=== PATIENT | male | born 1955 | race Caucasian/White ===

== ENCOUNTER → 2017-01-14 | Outpatient (CLI) | payer OTHER, BC ==
[~2017-01-14] MED LIST: ABL/5 PO; ASPI81TA28 PO; ATOR-26 PO; CARI350T28 PO; CHOL200010 PO; CLIN150C PO; CLON1TAB3 PO; CYAN500T PO; EFFSR150 PO; ESZO1TAB16 PO; FENT50DI19 TD; FLUO0.0543; FNTTP50 TD; GABA-113 PO; GLC/500 PO; ISOS60TA25 PO; MELO15TA10 PO; MELO15TA3 PO; METO25TA56 PO; METO50TA16 PO; NITR0.4S UT; PROM25TA PO; PROM25TA9 PO; RANI300T2 PO; TOPI100T20 PO; TOPI50TA24 PO; TRAZ100T29 PO; TRAZ50TA35 PO; VAREPAK PO; VENL1CAP92 PO
[2017-01-14 13:30] LABS: CALCIUM 9.5 mg/dl (8.5-10.1)
[2017-01-14 13:31] LABS: BLOOD UREA NITROGEN 16 mg/dl (7-18); BUN/CREATININE RATIO 11.7 (10-20); CARBON DIOXIDE 22 mmol/L (21-32); CHLORIDE 109 mmol/L (98-107); GLUCOSE 106 mg/dl (70-99); MAGNESIUM 2.2 mg/dl (1.8-2.4); POTASSIUM 3.8 mmol/L (3.5-5.1); SODIUM 140 mmol/L (136-145)
== END | disposition home or self-care (01) ==
LOC: C.LAB1850 11:58
PROVIDERS: ATTEND Physician Assistant Medical
DX: R00.2 Palpitations (principal)

== ENCOUNTER 2017-03-06 10:44 | Emergency (ER) | payer OTHER, BC ==
[~2017-03-06] VITALS: Ht 180.3 cm; Wt 121.0 kg
[~2017-03-06 10:44] MED LIST changes: -EFFSR150 PO; -FNTTP50 TD; -ISOS60TA25 PO; -MELO15TA10 PO; -METO50TA16 PO; -PROM25TA9 PO; -TRAZ100T29 PO
[2017-03-06 10:45] VITALS: TEMP 37; Ht 180.3 cm; Wt 121.0 kg
[2017-03-06] MEDS ORDERED: FNTTP50 TD (11:07)
[2017-03-06] MEDS ORDERED: TRAZ100T29 PO (11:07)
[2017-03-06] MEDS ORDERED: MELO15TA10 PO (11:07)
[2017-03-06] MEDS ORDERED: EFFSR150 PO (11:07)
[2017-03-06] MEDS ORDERED: METO50TA16 PO (11:07)
[2017-03-06] MEDS ORDERED: ISOS60TA25 PO (11:07)
[2017-03-06] MEDS ORDERED: PROM25TA9 PO (11:08)
[2017-03-06 11:36] LABS: HEMATOCRIT 45.3 % (42-52); MEAN CELL VOLUME 90.6 fL (80-100); MEAN CORPUSCULAR HEMOGLOBIN 31.8 pg (25-34); MEAN CORPUSCULAR HGB CONC 35.1 g/dl (32-36); MEAN PLATELET VOLUME 11.2 fL (7.4-10.4); PLATELET COUNT 153 K/uL (130-400); WHITE BLOOD COUNT 9.22 K/uL (4.8-10.8)
[2017-03-06 11:44] LABS: BUN/CREATININE RATIO 12.2 (10-20); CALCIUM 9.1 mg/dl (8.5-10.1); CREATININE 1.5 mg/dl (0.60-1.40); PARTIAL THROMBOPLASTIN RATIO 1.1; POTASSIUM 4.4 mmol/L (3.5-5.1); PROTHROMBIN TIME (PATIENT) 10.4 SECONDS (9.0-12.0)
[2017-03-06 11:45] VITALS: O2SAT 97
[2017-03-06] MEDS ORDERED: HYDROmorphone INJ 0.5 MG/0.5 ML SYR IV STA (11:48)
[2017-03-06] MEDS ORDERED: ONDANSETRON INJ 2 MG/ML 2 ML VIAL IV STA (11:48)
[2017-03-06 11:49] LABS: ALB/GLOB RATIO 1.2 (0.9-2); CKMB/CK RATIO 8.6 (0-3.0)
--- NOTE | 2017-03-06 11:52 | DIAGNOSTIC IMAGING REPORT ---
CHEST ONE VIEW PORTABLE CLINICAL HISTORY: chest pain, sob dyspnea COMPARISON STUDY: 08/07/2015 FINDINGS: The bones soft tissues and hemidiaphragms are normal. The cardiomediastinal silhouette is normal. The lungs are clear. The pulmonary vasculature is normal. IMPRESSION: Negative chest. The above report was generated using voice recognition software. It may contain grammatical, syntax or spelling errors. Electronically signed by: Syed Krueger M.D. 03/06/2017 11:51 AM Dictated Date/Time: 03/06/2017 11:51 AM
--- NOTE | 2017-03-06 14:14 | Medical Consult ---
Consultation Date of Consultation: Mar 06, 2017. Attending Physician: Reason for Consultation: Chest pain History of Present Illness 61 y/o M Hx CAD, HTN, HPL, morbid obesity, tobacco abuse, chronic CP. Pt is undergoing evaluation for reported palpitations which are associated with chest tightness and SOB. He had an MCOT 02/06 which did not show any significant arrhythmias associated with reported symptoms. He then had a 2 week event monitor which he states he was told was abnormal. This AM, the pt developed central upper CP which persisted for 2 hours and did not respond to NTG. He denied SOB, N/V or diaphoresis. The pain responded to narcotics provided in the ER. Initial trop is negative and was obtained approximately 2 hours after the onset of the pain. EKG shows a NSR. He has not had recurrence while in the ER and his pain is somewhat reproducible. Past Medical/Surgical History 1) CAD - cath 2012 - stens to LAD and L circ 2) HTN 3) HPL 4) Morbid obesity 5) Chronic lower back pain 6) Diastolic dysfunction 7) Depression Family History Patient reports no known family medical history. No history of premature CAD - History of CA - unspecified Social History Smokes 1 pack QD - denies excessive alcohol intake Smoking Status: Current Every Day Smoker Drug Use: none Marital Status: Housing Status: lives with family Occupation Status: retired Allergies Coded Allergies: Penicillins (Verified Allergy, Unknown, RASH/HIVES PER H&P OF DR GUNDERSON, 08/07/15) PER MD ON ORDER SHEET, REACTION UNKNOWN Review of Systems Constitutional: No fever, No chills, No sweats Eyes: No worsening of vision ENT: No hearing loss, No unusual epistaxis, No nasal symptoms Respiratory: No cough, No sputum, No wheezing Cardiovascular: + chest pain, No orthopnea, No PND Abdomen: No pain, No nausea, No vomiting Musculoskeletal: No joint pain Genitourinary - Male: No hematuria, No dysuria, No urinary frequency Neurologic: No memory loss, No paralysis, No weakness Psychiatric: No depression symptoms Endocrine: No fatigue Hematologic / Lymphatic: No abnormal bleeding/bruising Integumentary: No rash Allergic / Immunologic: No environmental allergies Physical Exam Date Time Temp Pulse Resp B/P (MAP) Pulse Ox O2 Delivery O2 Flow Rate FiO2 03/06/17 13:00 58 14 124/70 94 03/06/17 12:30 56 13 125/69 95 03/06/17 12:21 57 03/06/17 12:00 57 12 141/77 96 03/06/17 11:45 97 Nasal Cannula 1.0 03/06/17 11:45 97 Room Air 03/06/17 11:44 53 14 128/73 97 Room Air 03/06/17 10:45 37.0 62 18 157/81 96 Room Air Pleasant, overweight, middle-aged male - no distress General Appearance: WD/WN, no apparent distress Head: normocephalic Eyes: normal inspection, PERRL, EOMI ENT: normal ENT inspection Neck: supple, no adenopathy, thyroid normal, no JVD Respiratory/Chest: chest non-tender, lungs clear, normal breath sounds Cardiovascular: regular rate, rhythm, no edema, no gallop, no JVD, no murmur, normal peripheral pulses Abdomen/GI: normal bowel sounds, non tender Back: normal inspection, no CVA tenderness, no muscle spasm Extremities/Musculoskelatal: normal inspection, no calf tenderness, normal capillary refill 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, no motor/sensory deficits, alert, normal mood/affect, normal reflexes, oriented x 3 Skin: normal color, warm/dry, no rash Laboratory Results Last 24 Hours Test 03/06/17 10:53 White Blood Count 9.22 K/uL Red Blood Count 5.00 M/uL Hemoglobin 15.9 g/dL Hematocrit 45.3 % Mean Corpuscular Volume 90.6 fL Mean Corpuscular Hemoglobin 31.8 pg Mean Corpuscular Hemoglobin Concent 35.1 g/dl RDW Standard Deviation 43.6 fL RDW Coefficient of Variation 13.1 % Platelet Count 153 K/uL Mean Platelet Volume 11.2 fL Prothrombin Time 10.4 SECONDS Prothromb Time International Ratio 1.0 Activated Partial Thromboplast Time 29.0 SECONDS Partial Thromboplastin Ratio 1.1 D-Dimer 260 ug/L FEU Sodium Level 141 mmol/L Potassium Level 4.4 mmol/L Chloride Level 107 mmol/L Carbon Dioxide Level 28 mmol/L Anion Gap 6.0 mmol/L Blood Urea Nitrogen 18 mg/dl Creatinine 1.50 mg/dl Est Creatinine Clear Calc Drug Dose 68.4 ml/min Estimated GFR () 57.4 Estimated GFR (Non- 49.5 BUN/Creatinine Ratio 12.2 Random Glucose 105 mg/dl Calcium Level 9.1 mg/dl Total Bilirubin 0.4 mg/dl Aspartate Amino Transf (AST/SGOT) 21 U/L Alanine Aminotransferase (ALT/SGPT) 48 U/L Alkaline Phosphatase 89 U/L Total Creatine Kinase 22 U/L Creatine Kinase MB 1.9 ng/ml Creatine Kinase MB Ratio 8.6 Troponin I < 0.015 ng/ml Total Protein 7.1 gm/dl Albumin 3.8 gm/dl Globulin 3.3 gm/dl Albumin/Globulin Ratio 1.2 Assessment & Plan 61 y/o M Hx CAD, HTN, HPL, morbid obesity, tobacco abuse, chronic CP. Pt is undergoing evaluation for reported palpitations which are associated with chest tightness and SOB. He had an MCOT 02/06 which did not show any significant arrhythmias associated with reported symptoms. He then had a 2 week event monitor which he states he was told was abnormal. This AM, the pt developed central upper CP which persisted for 2 hours and did not respond to NTG. He denied SOB, N/V or diaphoresis. The pain responded to narcotics provided in the ER. Initial trop is negative and was obtained approximately 2 hours after the onset of the pain. EKG shows a NSR. He has not had recurrence while in the ER and his pain is somewhat reproducible. 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 We will monitor for a few more hours and obtain an additional set of troponins. If there is no change in his trop or EKG and CP does not recur, we will discharge home. Cont ASA, Statin, Bblocker 2) HTN - cont 3) HPL 4) Continued tobacco use - pt is aware of associated hazards of continued smoking 5) Obese - advised on weight loss/exercise following completion of cardio w/u No changes made to outpt meds Total time for this consult including review of outpatient records, labs, meds - discussion with pt and ER attending - 37 min
--- NOTE | 2017-03-06 14:54 | EMERGENCY ROOM VISIT NOTE ---
History Report prepared by Eusebio: Lynda Shannon Under the Supervision of: Dr. Abhilash Liriano M.D. First contact with patient: 11:38 Chief Complaint: CHEST PAIN Stated Complaint: CHEST PAIN,NAUSEA Nursing Triage Summary: triage note: Pt reports chest pain started at approx 1015 today. pt reports shortness of breath. pt reports hx of two stents. 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 The patient took 2 nitroglycerin and 2 baby aspirin. He states that neither seemed to relieve his pain. The patient states that his pain just started improving and seemed to be unrelated to the aspirin or nitroglycerin. The patient experiences pain with deep breathing. The patient's symptoms are unchanged when he goes from lying flat to sitting upright but his adds that he was experiencing difficulty breathing when he was sitting upright before. He is also experiencing nausea and some diarrhea. Pt denies LOC, headache, fevers, chills, diaphoresis, visual changes, neck pain, personal history or family history of aneurysm or pulmonary embolism, uncontrolled hypertension, leg swelling, coagulation abnormalities, abdominal pain, melena, hematochezia, urinary symptoms, numbness, weakness, lymphadenopathy, rash, or other complaints. The patient states that he has been experiencing an intermittent "uncomfortable" feeling in his chest over the past couple of weeks but he would not qualify it as pain. The patient is also experiencing a cough, but states that he is a smoker. The patient had cardiac 2 stents placed in 2012. The patient has a fentanyl patch in place for migraines which he states he has had for years. 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 A total of ten systems were reviewed and were otherwise negative. Past Medical & Surgical Medical Problems: (1) Anxiety (2) Benign hypertension (3) Depression (4) Diabetes (5) Migraine Surgical Problems: (1) H/O heart artery stent (2) Stented coronary artery Family History Patient reports no known family medical history. Social History Smoking Status: Current Every Day Smoker Alcohol Use: none Drug Use: none Marital Status: Housing Status: lives with family Occupation Status: retired Current/Historical Medications Scheduled Aripiprazole (Abilify), 5 MG PO DAILY Aspirin (Aspirin Ec), 81 MG PO DAILY Atorvastatin (Lipitor), 80 MG PO DAILY Cholecalciferol (Vitamin D), 4,000 UNITS PO DAILY Clindamycin Hcl (Cleocin), 300 MG PO DIRECTED Cyanocobalamin (Vitamin B-12), 500 MCG PO DAILY Fentanyl (Duragesic), 50 MCG TD [id number] Isosorbide Mononitrate Ext Rel (Imdur Ext Rel), 90 MG PO QAM Meloxicam (Mobic), 15 MG PO DAILY Metformin Hcl (Glucophage), 1,000 MG PO BID Metoprolol Tartrate (Lopressor) (Lopressor), 50 MG PO BID Nitroglycerin (Nitrostat), 0.4 MG UT PRN Ranitidine Hcl (Zantac), 300 MG PO BID Topiramate (Topamax), 150 MG PO BID Topiramate (Topamax), 50 MG PO BID Venlafaxine Hcl (Effexor Extended Rel), 150 MG PO DAILY Scheduled PRN Carisoprodol (Soma), 350 MG PO TID PRN for MUSCLE SPASM Promethazine Hcl (Phenergan), 25 MG PO BID PRN for Nausea Trazodone Hcl (Trazodone), 200 MG PO HS PRN for Sleep Allergies Coded Allergies: Penicillins (Verified Allergy, Unknown, RASH/HIVES PER H&P OF DR ARRIETA, 08/07/15) PER MD ON ORDER SHEET, REACTION UNKNOWN Physical Exam Vital Signs Date Time Temp Pulse Resp B/P (MAP) Pulse Ox O2 Delivery O2 Flow Rate FiO2 03/06/17 14:00 55 14 118/78 100 03/06/17 13:30 57 19 139/83 97 03/06/17 13:00 58 14 124/70 94 03/06/17 12:30 56 13 125/69 95 03/06/17 12:21 57 03/06/17 12:00 57 12 141/77 96 03/06/17 11:45 97 Nasal Cannula 1.0 03/06/17 11:45 97 Room Air 03/06/17 11:44 53 14 128/73 97 Room Air 03/06/17 10:45 37.0 62 18 157/81 96 Room Air Physical Exam GENERAL: Awake, alert, well-appearing, in no distress HENT: Normocephalic, atraumatic. Oropharynx unremarkable. EYES: Normal conjunctiva. Sclera non-icteric. NECK: Supple. No nuchal rigidity. FROM. No JVD. RESPIRATORY: Clear to auscultation. CARDIAC: Regular rate, normal rhythm. Extremities warm and well perfused. Pulses equal. ABDOMEN: Soft, non-distended. No tenderness to palpation. No rebound or guarding. No masses. RECTAL: Deferred. MUSCULOSKELETAL: Chest examination reveals no tenderness. The back is symmetrical on inspection without obvious abnormality. There is no CVA tenderness to palpation. No joint edema. LOWER EXTREMITIES: Calves are equal size bilaterally and non-tender. No edema. No discoloration. NEURO: Normal sensorium. No sensory or motor deficits noted. SKIN: No rash or jaundice noted. Medical Decision & Procedures ER Provider Diagnostic Interpretation: Radiology results as stated below per my review and radiologist interpretation: CHEST ONE VIEW PORTABLE FINDINGS: The bones soft tissues and hemidiaphragms are normal. The cardiomediastinal silhouette is normal. The lungs are clear. The pulmonary vasculature is normal. IMPRESSION: Negative chest. The above report was generated using voice recognition software. It may contain grammatical, syntax or spelling errors. Electronically signed by: Syed Krueger M.D. 03/06/2017 11:51 AM Dictated Date/Time: 03/06/2017 11:51 AM Laboratory Results 03/06/17 10:53 03/06/17 10:53 Test 03/06/17 10:53 Red Blood Count 5.00 M/uL (4.7-6.1) Mean Corpuscular Volume 90.6 fL (80-100) Mean Corpuscular Hemoglobin 31.8 pg (25-34) Mean Corpuscular Hemoglobin Concent 35.1 g/dl (32-36) RDW Standard Deviation 43.6 fL (36.4-46.3) RDW Coefficient of Variation 13.1 % (11.5-14.5) Mean Platelet Volume 11.2 fL (7.4-10.4) Prothrombin Time 10.4 SECONDS (9.0-12.0) Prothromb Time International Ratio 1.0 (0.9-1.1) Activated Partial Thromboplast Time 29.0 SECONDS (21.0-31.0) Partial Thromboplastin Ratio 1.1 D-Dimer 260 ug/L FEU (0-500) Anion Gap 6.0 mmol/L (3-11) Est Creatinine Clear Calc Drug Dose 68.4 ml/min Estimated GFR () 57.4 Estimated GFR (Non- 49.5 BUN/Creatinine Ratio 12.2 (10-20) Calcium Level 9.1 mg/dl (8.5-10.1) Total Bilirubin 0.4 mg/dl (0.2-1) Aspartate Amino Transf (AST/SGOT) 21 U/L (15-37) Alanine Aminotransferase (ALT/SGPT) 48 U/L (12-78) Alkaline Phosphatase 89 U/L (45-117) Total Creatine Kinase 22 U/L (39-308) Creatine Kinase MB 1.9 ng/ml (0.5-3.6) Creatine Kinase MB Ratio 8.6 (0-3.0) Troponin I < 0.015 ng/ml (0-0.045) Total Protein 7.1 gm/dl (6.4-8.2) Albumin 3.8 gm/dl (3.4-5.0) Globulin 3.3 gm/dl (2.5-4.0) Albumin/Globulin Ratio 1.2 (0.9-2) Laboratory results reviewed by me Medications Administered Medications (Trade) Dose Ordered Sig/Valentina Route Start Time Stop Time Status Last Admin Dose Admin Hydromorphone HCl (Dilaudid Inj) 0.5 mg NOW STAT IV 03/06/17 11:48 03/06/17 11:49 DC 03/06/17 11:57 0.5 MG Ondansetron HCl (Zofran Inj) 4 mg NOW STAT IV 03/06/17 11:48 03/06/17 11:49 DC 03/06/17 11:57 4 MG ECG Indication: chest pain Rate (beats per minute): 63 Rhythm: normal sinus Findings: no acute ischemic change, no ectopy ED Course 1145: The patient was evaluated in room B3. A complete history and physical exam was performed. 1148: Ordered Zofran Inj 4 mg IV, Dilaudid Inj 0.5 mg IV 1248: Upon reexamination, the patient was resting comfortably. I discussed the test results and treatment plan with him. The patient will be evaluated for further management. 1253: Discussed the patient's case with Dr. Herman of the [facility]. The patient will be evaluated for further treatment and disposition. Medical Decision Medication Reconciliation: I attest that I have personally reviewed the patient' s current medication list Patient was found to have a slightly elevated blood pressure due to circumstances. I do not believe that the patient requires hypertension monitoring. Triage Nursing notes reviewed. The patient's presentation and history were concerning for chest pain. Etiologies such as cardiac ischemia, aortic dissection, pulmonary embolism, pneumonia, pneumothorax, musculoskeletal, infections, gastrointestinal, as well as others were entertained. The patient was evaluated. Clinically he was feeling better but still had pain. He noted nitroglycerin did not relieve his pain. ECG was nonischemic. His CBC, chemistry panel, troponin, LFTs, and d-dimer were negative. The patient was given a dose of Dilaudid and Zofran and felt much better. He had a pleuritic component to it. Chest x-ray was performed and revealed no acute findings. The patient was not hypoxic. Given his cardiac history comes patient was made with internal medicine. The patient was evaluated in the Emergency Room by Dr. Herman for further management. Consults Time Called: 1251 Consulting Physician: Dr. Herman - [facility] [place] Returned Call: [phone] Discussed the patient's case with Dr. Herman of the [facility]. The patient will be evaluated for further treatment and disposition. Impression Primary Impression: Substernal chest pain Scribe Attestation The scribe's documentation has been prepared under my direction and personally reviewed by me in its entirety. I confirm that the note above accurately reflects all work, treatment, procedures, and medical decision making performed by me. Departure Information Dispostion Being Evaluated By Hospitalist Referrals Alexander Arrieta M.D. (PCP) Patient Instructions My [facility]
--- NOTE | 2017-03-06 17:19 | EMERGENCY ROOM VISIT NOTE ---
ED Visit Note This patient was seen by Dr. Liriano as well as Dr. Verduzco in consultation. The game plan was to discharge the patient the second troponin was normal with close follow-up with cardiology. The second troponin was also negative. The patient is asymptomatic at present and wants to go home. Our case management team is going to make an appointment and will call the machine ii cutter's office on Wednesday when they open. The patient was encouraged to return over the weekend if he has any further pain, worsening of symptoms, any new problems or concerns
[2017-03-06 17:31] VITALS: BP 136/76; PULSE 68; O2SAT 98
== END 2017-03-06 17:32 | disposition home or self-care (01) ==
LOC: C.EDB 10:45
DX: R07.2 Precordial pain (principal); R07.89 Other chest pain; R19.7 Diarrhea, unspecified; R11.0 Nausea; I10 Essential (primary) hypertension; F32.9 Major depressive disorder, single episode, unspecified; E11.9 Type 2 diabetes mellitus without complications; E78.5 Hyperlipidemia, unspecified; R06.02 Shortness of breath; E66.01 Morbid (severe) obesity due to excess calories; I25.10 Atherosclerotic heart disease of native coronary artery without angina pectoris; F17.200 Nicotine dependence, unspecified, uncomplicated; Z98.61 Coronary angioplasty status; Z79.82 Long term (current) use of aspirin; Z79.84 Long term (current) use of oral hypoglycemic drugs; Z79.899 Other long term (current) drug therapy

== ENCOUNTER 2018-01-06 12:45 | Observation (INO) | payer OTHER ==
[~2018-01-06] VITALS: Ht 180.3 cm; Wt 120.4 kg
[~2018-01-06 12:45] MED LIST changes: -CLON1TAB3 PO; +EFFSR150 PO; -ESZO1TAB16 PO; -FENT50DI19 TD; -FLUO0.0543; +FNTTP50 TD; -GABA-113 PO; +ISOS60TA25 PO; +MELO15TA10 PO; -MELO15TA3 PO; -METO25TA56 PO; +METO50TA16 PO; -PROM25TA PO; +PROM25TA9 PO; +TRAZ100T29 PO; -TRAZ50TA35 PO; -VAREPAK PO; -VENL1CAP92 PO
[2018-01-06 13:15] LABS: BASO ABS # 0.08 K/uL (0-0.2); EOS % 3.4 %; EOS ABS # 0.26 K/uL (0-0.5); HEMATOCRIT 44.1 % (42-52); HEMOGLOBIN 15.9 g/dL (14.0-18.0); IG# 0.02 K/uL (0.00-0.02); LYMPH % 31.6 %; LYMPH ABS # 2.44 K/uL (1.2-3.4); MEAN CORPUSCULAR HEMOGLOBIN 31.7 pg (25-34); MEAN CORPUSCULAR HGB CONC 36.1 g/dl (32-36); MONO % 12.8 %; MONO ABS # 0.99 K/uL (0.11-0.59); NEUT % 50.9 %; NEUT ABS # 3.93 K/uL (1.4-6.5); PLATELET COUNT 156 K/uL (130-400); RED CELL DISTRIBUTION WIDTH CV 13.5 % (11.5-14.5); RED CELL DISTRIBUTION WIDTH SD 43.4 fL (36.4-46.3); WHITE BLOOD COUNT 7.72 K/uL (4.8-10.8)
[2018-01-06] MEDS ORDERED: NITROGLYCERIN 0.4 MG SL PER TAB CHARGE SL PRN (13:15)
[2018-01-06] MEDS ORDERED: MoRPHine SULFATE 4 MG/ML 1 ML CARP\\VIAL IV STA ×2 (13:26→14:27)
--- NOTE | 2018-01-06 13:34 | DIAGNOSTIC IMAGING REPORT ---
CHEST ONE VIEW PORTABLE CLINICAL HISTORY: Atypical chest pain COMPARISON STUDY: 03/06/2017 FINDINGS: The heart is the upper limits of normal in size. The superior mediastinum is the upper limits of normal in the AP portable technique. There is no failure. There is no focal pulmonary consolidation. There are no pleural effusions. Slight interstitial prominence is felt to be related to technical factors.[ IMPRESSION: No active disease in the chest. Electronically signed by: Estevan Zhang M.D. 01/06/2018 1:33 PM Dictated Date/Time: 01/06/2018 1:30 PM
[2018-01-06 13:37] LABS: BLOOD UREA NITROGEN 21 mg/dl (7-18); CALCIUM 9.2 mg/dl (8.5-10.1); CARBON DIOXIDE 26 mmol/L (21-32); CKMB 3.3 ng/ml (0.5-3.6); CREATININE 1.32 mg/dl (0.60-1.40); GLUCOSE 104 mg/dl (70-99); POTASSIUM 4.4 mmol/L (3.5-5.1); SODIUM 138 mmol/L (136-145)
[2018-01-06] MEDS ORDERED: SODIUM CHLORIDE 0.9% 1000ML 1,000 ML IV STA (13:39)
[2018-01-06] MEDS ORDERED: CLON1TAB3 PO (14:32)
[2018-01-06] MEDS ORDERED: NITROGLYCERIN 0.4 MG SL PER TAB CHARGE UT PRN (15:30)
[2018-01-06] MEDS ORDERED: MoRPHine SULFATE 4 MG/ML 1 ML CARP\\VIAL IV PRN (15:30)
[2018-01-06] MEDS ORDERED: PROMETHAZINE HCL 25 MG TAB PO PRN (15:30)
[2018-01-06] MEDS ORDERED: TRAZODONE HCL 100 MG TAB PO PRN (15:30)
[2018-01-06] MEDS ORDERED: CARISOPRODOL 350 MG TAB PO PRN (15:30)
--- NOTE | 2018-01-06 15:56 | History and Physical ---
History & Physical Date & Time of Service: January 06, 2018 at 15:04 Chief Complaint: Chest Pain, Difficulty Breathing Primary Care Physician: Alexander Arrieta M.D. History of Present Illness Source: patient Mr. Castillo is currently having 1/10 chest pain and was experiencing 5/10 when he arrived. The pain was pressure where as his NM in the past was stabbing. It radiated across left chest but didn't go into his arm. He was shopping for ardon when the pain started and was not relieved with rest. He did get relief with nitro, reduced to a 4/10 from 5/10. He had the most relief from the morphine. He did have some sob that comes and goes without provocation. He does not normally have any sob. He did feel flushed. No recent travel or hospitalizations. ROS Constitutional: no chills, aches, sweats or fever Respiratory: no sob,cough, sputum, or wheezing Cardiac: see HPI GI: no abdominal pain, nausea, vomiting, diarrhea or constipation : no dysuria or hesitancy Extremities: no joint pain or weakness Skin: no rash All other systems reviewed and negative Pmhx: NM, last cath 2016, CAD, DMII, current smoker Past Medical/Surgical History Medical Problems: (1) Acute exacerbation of chronic low back pain (2) Anemia (3) Anemia (4) Anemia (5) Anxiety (6) Benign hypertension (7) Bilateral leg edema (8) CAD (coronary artery disease) (9) Cardiovascular stress test abnormal (10) Cellulitis (11) Chest pain (12) Chest pain (13) Chest pain (14) Chest wall pain (15) Depression (16) Diabetes (17) Dyspnea (18) Dyspnea (19) Edema, lower extremity (20) Headache (21) Hyperlipidemia (22) Hypokalemia (23) Migraine (24) Migraine (25) Migraine (26) Non-cardiac chest pain (27) Peripheral edema (28) Substernal chest pain (29) Unstable angina (30) Unstable angina Surgical Problems: (1) H/O heart artery stent (2) Stented coronary artery Family History Patient reports no known family medical history. 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) Immunizations History of Influenza Vaccine: Yes Influenza Vaccine Date: May 01, 2013 History of Tetanus Vaccine?: Yes Tetanus Immunization Date: Aug 09, 2008 History of Pneumococcal: Yes Pneumococcal Date: May 31, 2013 History of Hepatitis B Vaccine: Unknown Allergies Coded Allergies: Penicillins (Verified Allergy, Unknown, RASH/HIVES PER H&P OF DR ARRIETA, ) PER MD ON ORDER SHEET, REACTION UNKNOWN Home Medications Scheduled Aripiprazole (Abilify), 5 MG PO DAILY Aspirin (Aspirin Ec), 81 MG PO DAILY Atorvastatin (Lipitor), 80 MG PO DAILY Cholecalciferol (Vitamin D), 4,000 UNITS PO DAILY Clindamycin Hcl (Cleocin), 300 MG PO DIRECTED Clonazepam (Klonopin), 1 MG PO Q12 Cyanocobalamin (Vitamin B-12), 500 MCG PO DAILY Fentanyl (Duragesic), 50 MCG TD [id number] Isosorbide Mononitrate Ext Rel (Imdur Ext Rel), 90 MG PO QAM Meloxicam (Mobic), 15 MG PO DAILY Metformin Hcl (Glucophage), 1,000 MG PO BID Metoprolol Tartrate (Lopressor) (Lopressor), 50 MG PO BID Nitroglycerin (Nitrostat), 0.4 MG UT PRN Ranitidine Hcl (Zantac), 300 MG PO BID Topiramate (Topamax), 150 MG PO BID Topiramate (Topamax), 50 MG PO BID Venlafaxine Hcl (Effexor Extended Rel), 150 MG PO DAILY Scheduled PRN Carisoprodol (Soma), 350 MG PO TID PRN for MUSCLE SPASM Promethazine Hcl (Phenergan), 25 MG PO BID PRN for Nausea Trazodone Hcl (Trazodone), 200 MG PO HS PRN for Sleep Physical Exam Vital Signs Date Time Temp Pulse Resp B/P (MAP) Pulse Ox O2 Delivery O2 Flow Rate FiO2 01/06/18 14:46 54 13 170/85 92 Room Air 01/06/18 13:21 62 10 132/85 92 Room Air 01/06/18 13:16 59 16 142/73 97 Room Air 01/06/18 13:11 55 15 155/81 98 Room Air 01/06/18 13:01 62 01/06/18 12:58 95 Room Air 01/06/18 12:49 36.3 59 20 145/84 95 Room Air General: no distress Eyes: normal inspection, PERLL Respiratory: chest non tender, clear to auscultation, normal breath sounds, no respiratory distress, no accessory muscle use Cardiac: regular rate and rhythm, no rub or gallop, no murmur, no edema, no jvd GI/: active bowel sounds, no abd pain or tenderness, soft, non distended Extremities: normal range of motion, normal strength, non tender Neuro/Psych: alert and oriented x 3, normal mood and affect Skin: normal color, dry Diagnostics Laboratory Results Results Past 24 Hours Test 01/06/18 13:03 Range/Units White Blood Count 7.72 4.8-10.8 K/uL Red Blood Count 5.01 4.7-6.1 M/uL Hemoglobin 15.9 14.0-18.0 g/dL Hematocrit 44.1 42-52 % Mean Corpuscular Volume 88.0 80-100 fL Mean Corpuscular Hemoglobin 31.7 25-34 pg Mean Corpuscular Hemoglobin Concent 36.1 32-36 g/dl Platelet Count 156 130-400 K/uL Mean Platelet Volume 11.0 7.4-10.4 fL Neutrophils (%) (Auto) 50.9 % Lymphocytes (%) (Auto) 31.6 % Monocytes (%) (Auto) 12.8 % Eosinophils (%) (Auto) 3.4 % Basophils (%) (Auto) 1.0 % Neutrophils # (Auto) 3.93 1.4-6.5 K/uL Lymphocytes # (Auto) 2.44 1.2-3.4 K/uL Monocytes # (Auto) 0.99 0.11-0.59 K/uL Eosinophils # (Auto) 0.26 0-0.5 K/uL Basophils # (Auto) 0.08 0-0.2 K/uL RDW Standard Deviation 43.4 36.4-46.3 fL RDW Coefficient of Variation 13.5 11.5-14.5 % Immature Granulocyte % (Auto) 0.3 % Immature Granulocyte # (Auto) 0.02 0.00-0.02 K/uL Sodium Level 138 136-145 mmol/L Potassium Level 4.4 3.5-5.1 mmol/L Chloride Level 108 98-107 mmol/L Carbon Dioxide Level 26 21-32 mmol/L Anion Gap 4.0 3-11 mmol/L Blood Urea Nitrogen 21 7-18 mg/dl Creatinine 1.32 0.60-1.40 mg/dl Est Creatinine Clear Calc Drug Dose 77.0 ml/min Estimated GFR () 66.5 Estimated GFR (Non- 57.4 BUN/Creatinine Ratio 16.2 10-20 Random Glucose 104 70-99 mg/dl Calcium Level 9.2 8.5-10.1 mg/dl Total Creatine Kinase 24 39-308 U/L Creatine Kinase MB 3.3 0.5-3.6 ng/ml Creatine Kinase MB Ratio 13.7 0-3.0 Troponin I < 0.015 0-0.045 ng/ml Diagnostic Radiology CHEST ONE VIEW PORTABLE CLINICAL HISTORY: Atypical chest pain COMPARISON STUDY: 03/06/2017 FINDINGS: The heart is the upper limits of normal in size. The superior mediastinum is the upper limits of normal in the AP portable technique. There is no failure. There is no focal pulmonary consolidation. There are no pleural effusions. Slight interstitial prominence is felt to be related to technical factors.[ IMPRESSION: No active disease in the chest. Electronically signed by: Estevan Zhang M.D. 01/06/2018 1:33 PM EKG Sinus bradycardia with 1st degree A-V block Otherwise normal ECG When compared with ECG of 06-MAR-2017 10:51, MD interval has increased Confirmed by ALEXIS SHAW ([id number]) on 01/06/2018 1:12:15 PM Impression Assessment and Plan Mr. Castillo is a 62 year old man here with chest pain Chest pain, CAD, dyslipidemia - admit obs tele - consult cardiology - patient sees Marshal Carlson - last cath was 2016 - no intervention at that time, LVEF was 60%, last stent was 2012 - npo after mn until seen by cardiology - Trend troponins - initial troponin wnl - continue isosorbide, ASA, metoprolol, statin - prn nitro, morphine DMII - hold metformin - ss, bsgs ac & hs - last A1c 2/18 - 5.9% Insomnia - continue trazodone GERD - continue ranitidine Chronic low back pain - hold meloxicam - continue home fentanyl patch Migraine - continue prn promethazine and daily topiramate Depression - continue home Alexis Resident Physician Supervision Note: I was present with LEATHER SPRAYER Raina Fleming during the history and exam. I discussed the case with the resident and agree with the findings and plan as documented in the note. Any exceptions or clarifications are listed here: 62 y/o M Hx DM II, HTN, HPL, obese, smoker, CAD - previous cath and 2 stents - presenting with CP OE Overweight, middle-aged male in no distress S1,2 R CTA - poor air movement NT, ND No CCE P: Pt is high risk and alessio be admitted for r/o of an NM Provided with ASA, Statin and B ericka Will place on a SS for DM I discussed risk factors and lifestyle modification with this pt Documented By: Blayne Herman Advanced Directives Existing Advance Directive: Yes Existing Living Will: Yes Existing Power of Blood Bank Business Manager: Yes (Shannon ()) Existing Health Care Proxy: No Resuscitation Status DNR VTE Prophylaxis Will order VTE Prophylaxis: Yes
[2018-01-06] MEDS ORDERED: IV FLUIDS COMPLETED PRN (16:00)
[2018-01-06] MEDS: INSULIN ASPART 100 UNITS/ML 3 ML PEN SC SCH ×2 (16:15→21:00)
[2018-01-06 16:26] VITALS: BP 173/98; PULSE 54; TEMP 36.4; O2SAT 100; Ht 180.3 cm; Wt 120.4 kg
[2018-01-06] MEDS ORDERED: GLUCAGON FOR INJ 1 MG VIAL IM PRN (16:30)
[2018-01-06] MEDS ORDERED: CARBOHYDRATES FOR HYPOGLYCEMIA PO PRN (16:30)
[2018-01-06] MEDS ORDERED: GLUCOSE 10 TABS/TUBE PO PRN (16:30)
[2018-01-06] MEDS ORDERED: DEXTROSE 50% 50 ML SYR IV PRN (16:30)
[2018-01-06] MEDS ORDERED: GLUCOSE 40% GEL 15 GM TUBE PO PRN (16:30)
[2018-01-06] MEDS: CHECK FENTANYL PATCH PLACEMENT SCH (17:10)
--- NOTE | 2018-01-06 17:49 | EMERGENCY ROOM VISIT NOTE ---
History Report prepared by Eusebio: Cookie Crawford Under the Supervision of: Dr. Nathan Joy D.O. First contact with patient: 12:51 Chief Complaint: CHEST PAIN Stated Complaint: CHEST PAIN, DIFFICULTY BREATHING History of Present Illness The patient is a 62 year old male who presents to the Emergency Room with complaints of constant chest pain starting 1.5 hours ago. The patient states that the pain is a pressure in the center of his chest. He states that the pain radiates into the left shoulder. She currently rates her pain as a 5/10 in severity. He reports that the pain came on while sitting in his chair today. He notes that this does not feel like his previous heart attacks. He states that it felt more like a stabbing in the past. The patient complains of shortness of breath for 2 days. He states that it is worse with exertion, but he gets it while resting as well. The patient denies the pain radiating to his jaw, radiating to his arm, anything making it better or worse, nausea, vomiting, taking Nitroglycerin, and a history of aortic problems. The patient notes that he took one 81mg Aspirin this morning. He notes that he has not had any stents since his heart cath in 2017. Source of History: patient Onset: 1.5 hours ago Position: chest Symptom Intensity: 5/10 Quality: pressure Timing: constant Associated Symptoms: + SOB, No nausea, No vomiting Note: The patient denies the pain radiating into his jaw and into his arm. Review of Systems See HPI for pertinent positives & negatives. A total of 10 systems reviewed and were otherwise negative. Past Medical & Surgical Medical Problems: (1) Anxiety (2) Benign hypertension (3) Depression (4) Diabetes (5) Hyperlipidemia (6) Migraine Surgical Problems: (1) H/O heart artery stent (2) Stented coronary artery Family History Patient reports no known family medical history. Social History Smoking Status: Current Every Day Smoker Alcohol Use: none Drug Use: none Marital Status: Housing Status: lives with family Occupation Status: retired Current/Historical Medications Scheduled Aripiprazole (Abilify), 5 MG PO DAILY Aspirin (Aspirin Ec), 81 MG PO DAILY Atorvastatin (Lipitor), 80 MG PO DAILY Cholecalciferol (Vitamin D), 4,000 UNITS PO DAILY Clindamycin Hcl (Cleocin), 300 MG PO DIRECTED Clonazepam (Klonopin), 1 MG PO Q12 Cyanocobalamin (Vitamin B-12), 500 MCG PO DAILY Fentanyl (Duragesic), 50 MCG TD [id number] Isosorbide Mononitrate Ext Rel (Imdur Ext Rel), 90 MG PO QAM Meloxicam (Mobic), 15 MG PO DAILY Metformin Hcl (Glucophage), 1,000 MG PO BID Metoprolol Tartrate (Lopressor) (Lopressor), 50 MG PO BID Nitroglycerin (Nitrostat), 0.4 MG UT PRN Ranitidine Hcl (Zantac), 300 MG PO BID Topiramate (Topamax), 150 MG PO BID Topiramate (Topamax), 50 MG PO BID Venlafaxine Hcl (Effexor Extended Rel), 150 MG PO DAILY Scheduled PRN Carisoprodol (Soma), 350 MG PO TID PRN for MUSCLE SPASM Promethazine Hcl (Phenergan), 25 MG PO BID PRN for Nausea Trazodone Hcl (Trazodone), 200 MG PO HS PRN for Sleep Allergies Coded Allergies: Penicillins (Verified Allergy, Unknown, RASH/HIVES PER H&P OF DR ARRIETA, ) PER MD ON ORDER SHEET, REACTION UNKNOWN Physical Exam Vital Signs Date Time Temp Pulse Resp B/P (MAP) Pulse Ox O2 Delivery O2 Flow Rate FiO2 01/06/18 14:46 54 13 170/85 92 Room Air 01/06/18 13:21 62 10 132/85 92 Room Air 01/06/18 13:16 59 16 142/73 97 Room Air 01/06/18 13:11 55 15 155/81 98 Room Air 01/06/18 13:01 62 01/06/18 12:58 95 Room Air 01/06/18 12:49 36.3 59 20 145/84 95 Room Air Physical Exam GENERAL: Sitting up in bed, disheveled chronically ill-appearing, obese EYE EXAM: normal conjunctiva. OROPHARYNX: no exudate, no erythema, lips, buccal mucosa, and tongue normal and mucous membranes are moist NECK: supple, no nuchal rigidity, no adenopathy, non-tender LUNGS: Clear to auscultation. Normal chest wall mechanics HEART: no murmurs, S1 normal and S2 normal ABDOMEN: abdomen soft, non-tender, normo-active bowel sounds, no masses, no rebound or guarding. BACK: Back is symmetrical on inspection and there is no deformity, no midline tenderness, no CVA tenderness. SKIN: no rashes and no bruising UPPER EXTREMITIES: upper extremities are grossly normal. LOWER EXTREMITIES: No pitting edema. NEURO EXAM: Normal sensorium, cranial nerves II-XII grossly intact, normal speech, no gross weakness of arms. Medical Decision & Procedures ER Provider Diagnostic Interpretation: Radiology results as stated below per my review and the radiologist's interpretation: CHEST ONE VIEW PORTABLE CLINICAL HISTORY: Atypical chest pain COMPARISON STUDY: 03/06/2017 FINDINGS: The heart is the upper limits of normal in size. The superior mediastinum is the upper limits of normal in the AP portable technique. There is no failure. There is no focal pulmonary consolidation. There are no pleural effusions. Slight interstitial prominence is felt to be related to technical factors.[ IMPRESSION: No active disease in the chest. Electronically signed by: Estevan Zhang M.D. 01/06/2018 1:33 PM Dictated Date/Time: 01/06/2018 1:30 PM Laboratory Results 01/06/18 13:03 Red Blood Count 5.01, Mean Corpuscular Volume 88.0, Mean Corpuscular Hemoglobin 31.7, Mean Corpuscular Hemoglobin Concent 36.1, Mean Platelet Volume 11.0, Neutrophils (%) (Auto) 50.9, Lymphocytes (%) (Auto) 31.6, Monocytes (%) (Auto) 12.8, Eosinophils (%) (Auto) 3.4, Basophils (%) (Auto) 1.0, Neutrophils # (Auto ) 3.93, Lymphocytes # (Auto) 2.44, Monocytes # (Auto) 0.99, Eosinophils # (Auto ) 0.26, Basophils # (Auto) 0.08 01/06/18 13:03 Test 01/06/18 13:03 White Blood Count 7.72 K/uL (4.8-10.8) Red Blood Count 5.01 M/uL (4.7-6.1) Hemoglobin 15.9 g/dL (14.0-18.0) Hematocrit 44.1 % (42-52) Mean Corpuscular Volume 88.0 fL (80-100) Mean Corpuscular Hemoglobin 31.7 pg (25-34) Mean Corpuscular Hemoglobin Concent 36.1 g/dl (32-36) Platelet Count 156 K/uL (130-400) Mean Platelet Volume 11.0 fL (7.4-10.4) Neutrophils (%) (Auto) 50.9 % Lymphocytes (%) (Auto) 31.6 % Monocytes (%) (Auto) 12.8 % Eosinophils (%) (Auto) 3.4 % Basophils (%) (Auto) 1.0 % Neutrophils # (Auto) 3.93 K/uL (1.4-6.5) Lymphocytes # (Auto) 2.44 K/uL (1.2-3.4) Monocytes # (Auto) 0.99 K/uL (0.11-0.59) Eosinophils # (Auto) 0.26 K/uL (0-0.5) Basophils # (Auto) 0.08 K/uL (0-0.2) RDW Standard Deviation 43.4 fL (36.4-46.3) RDW Coefficient of Variation 13.5 % (11.5-14.5) Immature Granulocyte % (Auto) 0.3 % Immature Granulocyte # (Auto) 0.02 K/uL (0.00-0.02) Anion Gap 4.0 mmol/L (3-11) Est Creatinine Clear Calc Drug Dose 77.0 ml/min Estimated GFR () 66.5 Estimated GFR (Non- 57.4 BUN/Creatinine Ratio 16.2 (10-20) Calcium Level 9.2 mg/dl (8.5-10.1) Total Creatine Kinase 24 U/L (39-308) Creatine Kinase MB 3.3 ng/ml (0.5-3.6) Creatine Kinase MB Ratio 13.7 (0-3.0) Troponin I < 0.015 ng/ml (0-0.045) Laboratory results per my review. Medications Administered Medications (Trade) Dose Ordered Sig/Valentina Route Start Time Stop Time Status Last Admin Dose Admin Nitroglycerin (Nitrostat Tab) 0.4 mg Q5M PRN SL 01/06/18 13:15 01/06/18 16:30 DC 01/06/18 13:13 0.4 MG Morphine Sulfate (MoRPHine SULFATE INJ) 4 mg NOW STAT IV 01/06/18 13:26 01/06/18 13:28 DC 01/06/18 13:44 4 MG Sodium Chloride 1,000 ml @ 999 mls/hr Q1H1M STAT IV 01/06/18 13:39 01/06/18 14:39 DC 01/06/18 13:45 999 MLS/HR Morphine Sulfate (MoRPHine SULFATE INJ) 4 mg NOW STAT IV 01/06/18 14:27 01/06/18 14:28 DC 01/06/18 14:44 4 MG ECG Per My Interpretation Indication: chest pain Rate (beats per minute): 55 Rhythm: sinus rhythm Findings: 1st degree AV block, other (normal axis, no PVCs) ED Course ED COURSE: Vital signs were reviewed and showed hypertensive. The patients medical record was reviewed. The patient has two stents placed in 2012. He has a history of hypertension, hyperlipidemia, smoking, and morbid obesity. He had a vent monitor done in 2015 that was unremarkable. The patient had a cardiac catheter in March 2016. The above diagnostic studies were performed and reviewed. ED treatments and interventions as stated above. 1259: The patient was evaluated in room B5. A complete history and physical examination was performed. 1315: Ordered Nitroglycerin 0.4 mg PRN SL cp. 1326: Ordered Morphine Sulfate 4 mg IV. 1339: Ordered NSS 1000 ml @ 999 mls/hr IV. 1402: Upon reevaluation, the patient is feeling much better.I discussed my findings with the patient and he understands and agrees with the treatment plan. Based on the patients age, coexisting illnesses, exam and lab findings the decision to treat as an inpatient was made. The patient remained stable while under my care. The patient will be evaluated for further management. 1408: I reviewed the patient's case with Dr. Lopez [facility] Hospitalist. He will evaluate the patient for further management. Medical Decision Differential diagnoses includes but is not limited to gastritis, peptic ulcer disease, GERD, gallbladder disease, pancreatitis, small bowel obstruction, acute coronary syndrome, pericarditis, ischemic bowel, irritable bowel disease, irritable bowel syndrome, appendicitis, diverticulitis, malignancy, hernia, urinary tract infection, torsion, perforation, trauma, infectious. Patient is a 62-year-old male that presents to the ER for shortness of breath for the past 2 days with exertion along with intermittent chest pain. Patient has a history of 2 previous stents back in 2012. Chest pain does feel like a pressure. He was given nitro and morphine. He had near resolution of his pain. CBC along with BMP was unremarkable. Troponin was negative but CK-MB was elevated. Chest x-ray unremarkable. EKG nondiagnostic. Patient was updated at bedside. Discussed with internal medicine for observation due to cardiac risk factors and chest pain. Medication Reconcilliation Current Medication List: was personally reviewed by me Blood Pressure Screening Patient's blood pressure: Elevated blood pressure Will be further monitored by the hospitalist. Consults Time Called: 1402 Consulting Physician: Dr. John BELLA Hospitalist Returned Call: 1400 I reviewed the patient's case with Dr. John BELLA Hospitalist. He will evaluate the patient for further management. Impression Primary Impression: Precordial chest pain Scribe Attestation The scribe's documentation has been prepared under my direction and personally reviewed by me in its entirety. I confirm that the note above accurately reflects all work, treatment, procedures, and medical decision making performed by me. Departure Information Dispostion Being Evaluated By Hospitalist Referrals Alexander Arrieta M.D. (PCP) Patient Instructions My [facility]
[2018-01-06 19:25] VITALS: BP 153/92; PULSE 58; TEMP 36.5; O2SAT 95
[2018-01-06 20:12] VITALS: O2SAT 96
[2018-01-06] MEDS ORDERED: ALBUT/IPRATROP 3MG/0.5MG NEB 3 ML VIAL INH PRN (20:15)
[2018-01-06] MEDS: ALBUT/IPRATROP 3MG/0.5MG NEB 3 ML VIAL INH SCH (20:29)
[2018-01-06 20:31] VITALS: PULSE 56; O2SAT 94
[2018-01-06] MEDS: CLONAZEPAM 1 MG TAB PO SCH (20:42)
[2018-01-06] MEDS: TOPIRAMATE 25 MG TAB PO SCH (20:44)
[2018-01-06] MEDS: TOPIRAMATE 100 MG TAB PO SCH (20:44)
[2018-01-06] MEDS: METOPROLOL TARTRATE 50 MG TAB PO SCH (20:45)
[2018-01-06] MEDS: RANITIDINE HCL 150 MG TAB PO SCH (20:45)
[2018-01-06] MEDS: HEPARIN SOD 5000 UNIT/0.5 ML CARP SQ SCH (20:48)
[2018-01-06 23:59] VITALS: O2SAT 91
[2018-01-07 00:01] VITALS: BP 165/98; PULSE 61; TEMP 36.4; O2SAT 91
[2018-01-07] MEDS: CHECK FENTANYL PATCH PLACEMENT SCH ×2 (00:02→09:25)
[2018-01-07 03:50] VITALS: BP 171/90; PULSE 54; TEMP 36.8; O2SAT 98
[2018-01-07 06:01] LABS: HEMATOCRIT 44.2 % (42-52); HEMOGLOBIN 15.3 g/dL (14.0-18.0); MEAN CELL VOLUME 89.3 fL (80-100); MEAN CORPUSCULAR HEMOGLOBIN 30.9 pg (25-34); MEAN CORPUSCULAR HGB CONC 34.6 g/dl (32-36); MEAN PLATELET VOLUME 11.1 fL (7.4-10.4); PLATELET COUNT 157 K/uL (130-400); RED CELL DISTRIBUTION WIDTH CV 13.5 % (11.5-14.5); RED CELL DISTRIBUTION WIDTH SD 43.7 fL (36.4-46.3); WHITE BLOOD COUNT 6.91 K/uL (4.8-10.8)
[2018-01-07 06:24] LABS: CALCIUM 9.1 mg/dl (8.5-10.1); CREATININE 1.28 mg/dl (0.60-1.40)
[2018-01-07 06:38] VITALS: BP 165/83; PULSE 57; TEMP 36.5; O2SAT 99
[2018-01-07] MEDS: INSULIN ASPART 100 UNITS/ML 3 ML PEN SC SCH ×2 (07:00→11:00)
[2018-01-07 07:02] VITALS: PULSE 60; O2SAT 95
[2018-01-07] MEDS: ALBUT/IPRATROP 3MG/0.5MG NEB 3 ML VIAL INH SCH ×3 (07:02→15:11)
[2018-01-07] MEDS: TOPIRAMATE 100 MG TAB PO SCH (07:54)
[2018-01-07] MEDS: TOPIRAMATE 25 MG TAB PO SCH (07:55)
[2018-01-07] MEDS: RANITIDINE HCL 150 MG TAB PO SCH (07:55)
[2018-01-07] MEDS: METOPROLOL TARTRATE 50 MG TAB PO SCH (07:55)
[2018-01-07] MEDS: HEPARIN SOD 5000 UNIT/0.5 ML CARP SQ SCH (07:57)
--- NOTE | 2018-01-07 08:13 | Progress Note ---
Subjective Date of Service: January 07, 2018. Problem List Medical Problems: (1) Precordial chest pain Status: Acute (2) Substernal chest pain Status: Acute Objective Vital Signs Date Time Temp Pulse Resp B/P (MAP) Pulse Ox O2 Delivery O2 Flow Rate FiO2 01/07/18 07:02 60 14 95 Room Air 01/07/18 06:38 36.5 57 16 165/83 (110) 99 Room Air 01/07/18 04:00 Room Air 01/07/18 03:50 36.8 54 16 171/90 (117) 98 Room Air 01/07/18 00:01 36.4 61 20 165/98 (120) 91 Room Air 01/06/18 23:59 91 Room Air 01/06/18 20:31 56 16 94 Nasal Cannula 2.0 01/06/18 20:12 96 Nasal Cannula 2.0 01/06/18 19:25 36.5 58 20 153/92 (112) 95 Room Air 01/06/18 16:26 36.4 54 16 173/98 100 Room Air 01/06/18 16:15 Room Air 01/06/18 14:46 54 13 170/85 92 Room Air 01/06/18 13:21 62 10 132/85 92 Room Air 01/06/18 13:16 59 16 142/73 97 Room Air 01/06/18 13:11 55 15 155/81 98 Room Air 01/06/18 13:01 62 01/06/18 12:58 95 Room Air 01/06/18 12:49 36.3 59 20 145/84 95 Room Air Laboratory Results Last 24 Hours Test 01/06/18 13:03 01/06/18 16:48 01/06/18 16:57 01/06/18 19:09 White Blood Count 7.72 K/uL Red Blood Count 5.01 M/uL Hemoglobin 15.9 g/dL Hematocrit 44.1 % Mean Corpuscular Volume 88.0 fL Mean Corpuscular Hemoglobin 31.7 pg Mean Corpuscular Hemoglobin Concent 36.1 g/dl Platelet Count 156 K/uL Mean Platelet Volume 11.0 fL Neutrophils (%) (Auto) 50.9 % Lymphocytes (%) (Auto) 31.6 % Monocytes (%) (Auto) 12.8 % Eosinophils (%) (Auto) 3.4 % Basophils (%) (Auto) 1.0 % Neutrophils # (Auto) 3.93 K/uL Lymphocytes # (Auto) 2.44 K/uL Monocytes # (Auto) 0.99 K/uL Eosinophils # (Auto) 0.26 K/uL Basophils # (Auto) 0.08 K/uL RDW Standard Deviation 43.4 fL RDW Coefficient of Variation 13.5 % Immature Granulocyte % (Auto) 0.3 % Immature Granulocyte # (Auto) 0.02 K/uL Sodium Level 138 mmol/L Potassium Level 4.4 mmol/L Chloride Level 108 mmol/L Carbon Dioxide Level 26 mmol/L Anion Gap 4.0 mmol/L Blood Urea Nitrogen 21 mg/dl Creatinine 1.32 mg/dl Est Creatinine Clear Calc Drug Dose 77.0 ml/min Estimated GFR () 66.5 Estimated GFR (Non- 57.4 BUN/Creatinine Ratio 16.2 Random Glucose 104 mg/dl Calcium Level 9.2 mg/dl Total Creatine Kinase 24 U/L Creatine Kinase MB 3.3 ng/ml Creatine Kinase MB Ratio 13.7 Troponin I < 0.015 ng/ml < 0.015 ng/ml Hepatitis C Antibody Screen NEG Bedside Glucose 91 mg/dl Prothrombin Time 10.3 SECONDS Prothromb Time International Ratio 1.0 Test 01/06/18 21:05 01/07/18 05:16 01/07/18 06:42 01/07/18 07:04 Bedside Glucose 94 mg/dl 105 mg/dl White Blood Count 6.91 K/uL Red Blood Count 4.95 M/uL Hemoglobin 15.3 g/dL Hematocrit 44.2 % Mean Corpuscular Volume 89.3 fL Mean Corpuscular Hemoglobin 30.9 pg Mean Corpuscular Hemoglobin Concent 34.6 g/dl RDW Standard Deviation 43.7 fL RDW Coefficient of Variation 13.5 % Platelet Count 157 K/uL Mean Platelet Volume 11.1 fL Sodium Level 138 mmol/L Potassium Level mmol/L 3.9 mmol/L Chloride Level 110 mmol/L Carbon Dioxide Level 23 mmol/L Anion Gap 5.0 mmol/L Blood Urea Nitrogen 20 mg/dl Creatinine 1.28 mg/dl Est Creatinine Clear Calc Drug Dose 79.0 ml/min Estimated GFR () 69.1 Estimated GFR (Non- 59.6 BUN/Creatinine Ratio 15.8 Random Glucose 94 mg/dl Calcium Level 9.1 mg/dl Assessment and Plan Mr. Castillo is a 62 year old man here with chest pain Chest pain, CAD, dyslipidemia - consult cardiology - patient sees Marshal Carlson - last cath was 2015 - no intervention at that time, LVEF was 60%, last stent was 2012 - Trend troponins - initial troponin wnl - continue isosorbide, ASA, metoprolol, statin DMII- hold metformin - ss, bsgs ac & hs - last A1c 10/10 - 5.9% Insomnia trazodone GERD ranitidine Chronic low back pain, continue home fentanyl patch - hold meloxicam Migraine- continue prn promethazine and daily topiramate Depression Abilify and Effexor
[2018-01-07] MEDS ORDERED: FENTANYL 50 MCG/HR TDSY TD SCH (09:00)
[2018-01-07] MEDS ORDERED: CHOLECALCIFEROL 1000 INTER.UNIT TAB PO SCH (09:00)
[2018-01-07] MEDS ORDERED: VENLAFAXINE HCL XR 150 MG CAPXR PO SCH (09:00)
[2018-01-07] MEDS ORDERED: ARIPIprazole TAB 5 MG TAB PO SCH (09:00)
[2018-01-07] MEDS ORDERED: ASPIRIN 81 MG ECTAB PO SCH (09:00)
[2018-01-07] MEDS ORDERED: FENTANYL PATCH REMOVE & WASTE SCH (09:00)
[2018-01-07] MEDS ORDERED: ISOSORBIDE MONONITRATE 30 MG TABCR PO SCH (09:00)
[2018-01-07] MEDS ORDERED: ATORVASTATIN 40 MG TAB PO SCH (09:00)
[2018-01-07] MEDS ORDERED: CYANOCOBALAMIN 500 MCG TAB (VIT B-12) PO SCH (09:00)
[2018-01-07] MEDS: CLONAZEPAM 1 MG TAB PO SCH (09:24)
[2018-01-07 11:23] VITALS: PULSE 48; O2SAT 96
--- NOTE | 2018-01-07 12:06 | Cardiology Consultation ---
Cardiology Consultation Date of Consultation: January 07, 2018. Requesting Physician: Raina CHARLES Attending Physician: Dr. Capone Reason for Consultation: Chest pain Pt evaluation today including: conversation w/ patient, physical exam, chart review, lab review, review of studies, review of inpatient medication list, conversation w/ attending History of Present Illness Mr. Castillo is a 62-year-old male with a history of CAD s/p PCI to LAD and PDA in 2012, hypertension, dyslipidemia, type 2 DM, and ongoing tobacco abuse who presented to the ED yesterday with complaints of chest pain. He reports that around 11:30 am yesterday, he was out shopping for [place] when he noted substernal chest pressure which radiated into his left shoulder. He had associated shortness of breath with the discomfort, but no nausea, vomiting , or diaphoresis. He proceeded to the ED where he was given 2 sublingual nitro, which he states did not relieve his pain. He was then given IV morphine, which did resolve the pain. He has been asymptomatic since that time with no recurrence of the chest discomfort or shortness of breath. He states that the chest discomfort is similar to what he experienced prior to his previous stenting. Patient reports that he is not very active, but is able to walk about 100 ft to his mailbox and back with no limiting cardiopulmonary symptoms. He denies exertional chest pain or limiting dyspnea. He denies orthopnea, PND, or edema. He denies palpitations, lightheadedness, syncope, or presyncope. He denies abnormal bleeding such as melena, hematochezia, or hematuria. He denies cerebrovascular symptoms. He notes a chronic dry cough. He denies wheezing, fevers, or chills. He denies GI or symptoms. Review of Systems: As noted in HPI. All other 10 point ROS are reviewed and otherwise negative at this time. Past Medical/Surgical History 1. Coronary artery disease s/p GRACE mid LAD 06/2013 and GRACE left PDA 07/2013. Most recent cardiac catheterization 04/14/2016 showed patent stents and mild non -obstructive CAD. 2. Hypertension 3. Dyslipidemia 4. Type 2 diabetes mellitus 5. GERD 6. Lumbosacral radiculopathy 7. Obesity 8. Depression 9. Back surgery 10. Knee surgery 11. Shoulder surgery Family History Patient reports no known family medical history. Noncontributory given his own disease. Social History Smoking Status: Current Every Day Smoker History of Alcohol Use: No He currently smokes 1 ppd. He has been smoking since the age of 20 at up to 1.5 ppd. He denies alcohol or illicit drug use. Allergies Coded Allergies: Penicillins (Verified Allergy, Unknown, RASH/HIVES PER H&P OF DR GUNDERSON, ) PER MD ON ORDER SHEET, REACTION UNKNOWN Medications Current Inpatient Medications Medications (Trade) Dose Ordered Sig/[place] Route Start Time Stop Time Status Last Admin Dose Admin Aripiprazole (Abilify Tab) 5 mg DAILY PO 01/07/18 09:00 02/06/18 08:59 01/07/18 07:55 5 MG Aspirin (Ecotrin Tab) 81 mg DAILY PO 01/07/18 09:00 02/06/18 08:59 Atorvastatin Calcium (Lipitor Tab) 80 mg DAILY PO 01/07/18 09:00 02/06/18 08:59 01/07/18 07:56 80 MG Clonazepam (Klonopin Tab) 1 mg Q12 PO 01/06/18 21:00 02/05/18 20:59 01/07/18 09:24 1 MG Cyanocobalamin (Vitamin B-12 Tab) 500 mcg DAILY PO 01/07/18 09:00 02/06/18 08:59 01/07/18 07:55 500 MCG Fentanyl (Duragesic Patch) 50 mcg Q3D@0900 TD 01/07/18 09:00 01/21/18 08:59 01/07/18 09:25 50 MCG Isosorbide Mononitrate (Imdur Ext Rel Tab) 90 mg QAM PO 01/07/18 09:00 02/06/18 08:59 01/07/18 07:56 90 MG Metoprolol Tartrate (Lopressor Tab) 50 mg BID PO 01/06/18 21:00 02/05/18 20:59 01/07/18 07:55 50 MG Nitroglycerin (Nitrostat Tab) 0.4 mg UD PRN UT 01/06/18 15:30 02/05/18 15:29 Promethazine HCl (Phenergan Tab) 25 mg BID PRN PO 01/06/18 15:30 02/05/18 15:29 Topiramate (Topamax Tab) 50 mg BID PO 01/06/18 21:00 02/05/18 20:59 01/07/18 07:55 50 MG Topiramate (Topamax Tab) 100 mg BID PO 01/06/18 21:00 02/05/18 20:59 01/07/18 07:54 100 MG Trazodone HCl (Desyrel Tab) 200 mg HS PRN PO 01/06/18 15:30 02/05/18 15:29 Venlafaxine HCl (effeXOR EXTENDED REL CAP) 150 mg DAILY PO 01/07/18 09:00 02/06/18 08:59 01/07/18 07:55 150 MG Cholecalciferol (Vitamin D Tab) 4,000 inter.unit DAILY PO 01/07/18 09:00 02/06/18 08:59 01/07/18 07:56 4,000 INTER.UNIT Ranitidine HCl (zANTac TAB) 150 mg BID PO 01/06/18 21:00 02/05/18 20:59 01/07/18 07:55 150 MG Morphine Sulfate (MoRPHine SULFATE INJ) 2 mg Q4H PRN IV 01/06/18 15:30 01/20/18 15:29 01/07/18 09:50 2 MG Insulin Aspart (novoLOG ASPART) SLIDING SCALE If C... ACHS SC 01/06/18 16:15 02/05/18 16:14 Miscellaneous (Iv Fluids Completed) 1 ea PRN PRN N/A 01/06/18 16:00 01/06/19 15:59 Heparin Sodium (Porcine) (Heparin Sq 5000 Unit/0.5ml) 5,000 unit Q12 SQ 01/06/18 21:00 02/05/18 20:59 01/07/18 07:57 5,000 UNIT Glucose (Glucose 40% Gel) 15-30 GRAMS 15 GRAMS... UD PRN PO 01/06/18 16:30 02/05/18 16:29 Glucose (Glucose Chew Tab) 4-8 Tablets 4 Tabl... UD PRN PO 01/06/18 16:30 02/05/18 16:29 Dextrose (Dextrose 50% 50ML Syringe) 25-50ML 25ML FOR ... UD PRN IV 01/06/18 16:30 02/05/18 16:29 Glucagon (Glucagon Inj) 1 mg UD PRN IM 01/06/18 16:30 02/05/18 16:29 Carbohydrates (Carbohydrates For Hypoglycemia) 15-30 GRAMS 15 grams if BSG 54-69... UD PRN PO 01/06/18 16:30 02/05/18 16:29 Miscellaneous (Fentanyl Patch Remove & Waste) 1 ea Q3D@0900 N/A 01/07/18 09:00 02/06/18 08:59 01/07/18 09:34 1 EA Miscellaneous Information (Check Fentanyl Patch Placement) 1 ea QS N/A 01/06/18 17:00 02/05/18 16:59 01/07/18 09:25 1 EA Albuterol/ Ipratropium (Duoneb) 3 ml QIDR INH 01/07/18 08:00 02/06/18 07:59 01/07/18 07:02 3 ML Albuterol/ Ipratropium (Duoneb) 3 ml Q2H PRN INH 01/06/18 20:15 02/05/18 20:14 Physical Exam Vital Signs Past 12 Hours Date Time Temp Pulse Resp B/P (MAP) Pulse Ox O2 Delivery O2 Flow Rate FiO2 01/07/18 08:00 Room Air 01/07/18 07:02 60 14 95 Room Air 01/07/18 06:38 36.5 57 16 165/83 (110) 99 Room Air 01/07/18 04:00 Room Air 01/07/18 03:50 36.8 54 16 171/90 (117) 98 Room Air 01/07/18 00:01 36.4 61 20 165/98 (120) 91 Room Air 01/06/18 23:59 91 Room Air Constitutional: Alert, oriented, in no acute distress HEENT: Head is atraumatic and normocephalic. EOMs intact. Sclera anicteric. Face is symmetric. No perioral cyanosis. Mucous membranes moist. Neck: Supple, no appreciable JVD however thick neck, no carotid bruits Pulmonary: Normal respiratory effort, clear to auscultation bilaterally Cardiac: Regular rate and rhythm, normal S1 and S2, no gallops, no rubs, no murmurs Extremities: No edema. No clubbing or cyanosis. Pulses intact Abdomen: Normal bowel sounds, soft, non-tender, no abdominal mass palpated Skin: Normal skin color, turgor, and pigmentation, no rash, no skin lesions Neurological: Oriented to person, place, and time Data Laboratory Results: Last 24 Hours Test 01/06/18 13:03 01/06/18 16:48 01/06/18 16:57 01/06/18 19:09 White Blood Count 7.72 K/uL Red Blood Count 5.01 M/uL Hemoglobin 15.9 g/dL Hematocrit 44.1 % Mean Corpuscular Volume 88.0 fL Mean Corpuscular Hemoglobin 31.7 pg Mean Corpuscular Hemoglobin Concent 36.1 g/dl Platelet Count 156 K/uL Mean Platelet Volume 11.0 fL Neutrophils (%) (Auto) 50.9 % Lymphocytes (%) (Auto) 31.6 % Monocytes (%) (Auto) 12.8 % Eosinophils (%) (Auto) 3.4 % Basophils (%) (Auto) 1.0 % Neutrophils # (Auto) 3.93 K/uL Lymphocytes # (Auto) 2.44 K/uL Monocytes # (Auto) 0.99 K/uL Eosinophils # (Auto) 0.26 K/uL Basophils # (Auto) 0.08 K/uL RDW Standard Deviation 43.4 fL RDW Coefficient of Variation 13.5 % Immature Granulocyte % (Auto) 0.3 % Immature Granulocyte # (Auto) 0.02 K/uL Sodium Level 138 mmol/L Potassium Level 4.4 mmol/L Chloride Level 108 mmol/L Carbon Dioxide Level 26 mmol/L Anion Gap 4.0 mmol/L Blood Urea Nitrogen 21 mg/dl Creatinine 1.32 mg/dl Est Creatinine Clear Calc Drug Dose 77.0 ml/min Estimated GFR () 66.5 Estimated GFR (Non- 57.4 BUN/Creatinine Ratio 16.2 Random Glucose 104 mg/dl Calcium Level 9.2 mg/dl Total Creatine Kinase 24 U/L Creatine Kinase MB 3.3 ng/ml Creatine Kinase MB Ratio 13.7 Troponin I < 0.015 ng/ml < 0.015 ng/ml Hepatitis C Antibody Screen NEG Bedside Glucose 91 mg/dl Prothrombin Time 10.3 SECONDS Prothromb Time International Ratio 1.0 Test 01/06/18 21:05 01/07/18 05:16 01/07/18 06:42 01/07/18 07:04 Bedside Glucose 94 mg/dl 105 mg/dl White Blood Count 6.91 K/uL Red Blood Count 4.95 M/uL Hemoglobin 15.3 g/dL Hematocrit 44.2 % Mean Corpuscular Volume 89.3 fL Mean Corpuscular Hemoglobin 30.9 pg Mean Corpuscular Hemoglobin Concent 34.6 g/dl RDW Standard Deviation 43.7 fL RDW Coefficient of Variation 13.5 % Platelet Count 157 K/uL Mean Platelet Volume 11.1 fL Sodium Level 138 mmol/L Potassium Level mmol/L 3.9 mmol/L Chloride Level 110 mmol/L Carbon Dioxide Level 23 mmol/L Anion Gap 5.0 mmol/L Blood Urea Nitrogen 20 mg/dl Creatinine 1.28 mg/dl Est Creatinine Clear Calc Drug Dose 79.0 ml/min Estimated GFR () 69.1 Estimated GFR (Non- 59.6 BUN/Creatinine Ratio 15.8 Random Glucose 94 mg/dl Calcium Level 9.1 mg/dl CXR: No active disease in the chest. EKG: Sinus bradycardia with 1st degree AV block. Otherwise normal EKG. Telemetry reviewed: Sinus rhythm. Assessment & Plan ASSESSMENT/PLAN: 1. Chest pain: Despite chest discomfort for at least 1.5 hours, two sets of cardiac enzymes have been negative. ECG also shows no dynamic ST-T wave changes. His presentation is therefore not consistent with an ACS. Given his known CAD and the fact that he states his discomfort was similar to his prior anginal symptoms, recommend a dobutamine stress echocardiogram for further evaluation. 2. Coronary artery disease s/p intracoronary stenting: His presentation is not consistent with ACS as noted above. Dobutamine stress echocardiogram ordered. Continue aspirin, statin, beta ericka, and long acting nitrate therapy. 3. Hypertension: BP has been elevated during this admission, but appears better controlled in the outpatient setting. Continue long acting nitrate and beta ericka. Would not further titrate the beta ericka given his resting his bradycardia. 4. Dyslipidemia: Continue high intensity statin therapy. Thank you for allowing us to see this patient in consultation. Patient was discussed with Dr. Capone, and the plan was made in collaboration with him. Addendum by Cardiology attending: Patient was seen and examined. Agree with above with following additions. Patient had 1.5 hours of constant chest pain. There is no associated shortness of breath. Nitroglycerin improved symptoms only slightly. Chest discomfort resolved only after receiving morphine. Currently chest pain free at the time of our visit earlier today. History reviewed. Exam notable for: General: No acute distress Cardiac: Normal S1 and S2. No audible murmur, rub, or gallop. Lungs: Clear to auscultation bilaterally. Extremities: No significant edema. No cyanosis. ECG personally reviewed 01/06/2018: Sinus bradycardia with first-degree AV block. Dobutamine stress echo was ordered however he did not tolerate dobutamine and therefore stress images were not obtained. Baseline images however demonstrated normal left ventricular systolic function on preliminary review, with no wall motion abnormalities noted. ASSESSMENT/PLAN: 1. Chest pain: Chest pain lasted 1.5 hours with negative cardiac enzymes. This would suggest that his pain was not ischemic in nature. Because symptoms felt similar to prior [place], dobutamine stress echo was recommended however he did not tolerate dobutamine secondary to headache and nausea. The symptoms resolved but test was aborted. Could perform myocardial perfusion study however this was not available today. He prefers to go home. Follow up with his primary business teacher. 2. CAD status post PCI: Recommend that he remain on anti-platelet therapy, aspirin 81 mg daily indefinitely. Continue nitrate therapy and beta-ericka. Continue high-intensity statin therapy. No definite angina at this time.Most recent cardiac catheterization report was reviewed. 3. Dyslipidemia: Continue high-intensity statin therapy. 4. Hypertension: Blood pressure has been elevated. Titrate medications as appropriate to optimize blood pressure control. 5. Disposition: Follow-up with primary business teacher, Dr. Carlson, within the next 1-2 weeks. At that time, Dr. Carlson can reassess and determine if further evaluation is necessary from a cardiac standpoint. Patient care has been discussed with Dr. Trimble of the primary hospitalist service. Thank you for allowing me to participate in the care of your patient. Please call for any other questions or concerns. Sincerely, Jacques Capone M.D.
[2018-01-07] MEDS ORDERED: DOBUTamine HCL 12.5 MG/ML 20 ML VIAL ONE (12:27)
[2018-01-07] MEDS ORDERED: METOPROLOL TARTRATE 1 MG/ML VIAL ONE (12:27)
[2018-01-07] MEDS ORDERED: ATROPINE SULFATE 0.1 MG/ML 5ML SYR ONE (12:27)
[2018-01-07] MEDS ORDERED: PERFLUTREN LIPID MICROSPHERE (DEFINITY) IV ONE (13:26)
[2018-01-07] MEDS ORDERED: VARE1PAK15 PO (14:31)
[2018-01-07] MEDS ORDERED: RXC5 PO (14:31)
--- NOTE | 2018-01-07 14:33 | Discharge Instructions ---
Discharge Instructions Date of Service January 07, 2018. Admission Reason for Admission: Chest Pain Discharge Discharge Diagnosis / Problem: chest pain Discharge Goals Goal(s): Diagnostic testing, Therapeutic intervention Activity Recommendations Activity Limitations: as noted below Lifting Limitations: gradually increase as tolerated . Current Hospital Diet Patient's current hospital diet: Diabetes Type 2 Diet, AHA Diet (Heart Healthy) Discharge Diet Recommended Diet: AHA Diet (Heart Healthy) Pending Studies Studies pending at discharge: no Medical Emergencies . Who to Call and When: Medical Emergencies: If at any time you feel your situation is an emergency, please call 911 immediately. . Non-Emergent Contact Non-Emergency issues call your: Primary Care Provider, [employer] Call Non-Emergent contact if: temperature is above 101, your pain is not controlled . . "Provider Documentation" section prepared by James Trimble. .
[2018-01-07 14:45] VITALS: BP 165/83; PULSE 48; TEMP 36.5; O2SAT 96
--- NOTE | 2018-01-07 17:42 | Discharge Summary ---
Discharge Summary Date of Service January 07, 2018. Discharge Summary Admission Date: January 06, 2018 at 15:36 Discharge Date: January 07, 2018 Discharge Disposition: Home Principal Diagnosis: chest pain Immunizations: Have You Had Influenza Vaccine: Yes Influenza Vaccine Date: May 01, 2013 History of Tetanus Vaccine?: Yes Tetanus Immunization Date: Aug 09, 2008 History of Pneumococcal: Yes Pneumococcal Date: May 31, 2013 History of Hepatitis B Vaccine: Unknown Hospital Course Mr. Castillo is a 62 year old man here with chest pain, he did not tolerate attempts of a dobutamine stress was offered to stay in the hospital till Wednesday by the agency service representative however he preferred to go home and have follow-up with Dr. Carlson Chest pain, CAD, dyslipidemia - last cath was 2015 - no intervention at that time, LVEF was 60%, last stent was 2012 The patient be sent home he assures me he has nitroglycerin at home, I will give him a short supply of oxycodone, and reinforced the fact that he should stop smoking. - continue isosorbide, ASA, metoprolol, statin Given the fact that the patient had chest pain at home with no troponin elevation at all is unlikely this is acute coronary syndrome DMII- metformin Reinforced diabetic diet - last A1c 10/10 - 5.9% Insomnia trazodone GERD ranitidine Chronic low back pain, continue home fentanyl patch meloxicam Migraine- continue prn promethazine and daily topiramate Depression Abilify and Effexor This patient wishes to have Chantix for smoking cessation I cautioned and given his mental multiple [employer] affecting medications however his states he was on Chantix in the past with some good success even though he is on the same medications I gave him a prescription for starter pack of Chantix Total Time Spent: Greater than 30 minutes This includes examination of the patient, discharge planning, medication reconciliation, and communication with other providers. Discharge Instructions Please refer to the electronic Patient Visit Report (Discharge Instructions) for additional information.
--- NOTE | 2018-01-07 22:00 | ECHOCARDIOGRAM REPORT ---
*NOTICE TO RECEIVING [employer] This information is strictly Confidential and protected under [place] law. [place] law prohibits you from making any further disclosure of this information unless further disclosure is expressly permitted by the written consent of the person to whom it pertains or is authorized by law. A general authorization for the release of medical or other information is not sufficient for this purpose. Hospital accepts no responsibility if the information is made available to any other person, INCLUDING THE PATIENT. Interpretation Summary * Name: JENNY ALEXANDER Study Date: 01/07/2018 10:38 AM BP: 165/83 mmHg * Patient Location: C.2T\S\S233\S\1 HR: 60 * : 1955 (M/d/yyyy) Gender: Male Height: 71 in * Age: 62 yrs Ethnicity: [place] Weight: 265 lb * Ordering Physician: Rob Capone * Referring Physician: Self, Referred * Performed By: Meryl Blackwood RCS * * Reason For Study: Chest Pain * BSA: 2.4 m2 * -- Conclusions -- * Dobutamine stress echo: * 1. Stress imaging was not available for review. Study was aborted secondary to headache and nausea, as well as hypertension. * 2. Nondiagnostic dobutamine ECG as target heart rate was not attained. * 3. Hypertensive response to dobutamine. * 4. Patient did not tolerate dobutamine infusion. * Echo: * 1. Normal left ventricular size and systolic function. EF 60-65%. No regional wall motion abnormalities. Mild concentric left ventricular hypertrophy. No significant diastolic dysfunction. * 2. No significant valvular abnormalities visualized. * 3. Technically difficult study, enhanced with IV Definity. * 4. Normal estimated right ventricular systolic pressure. Procedure Details * A complete two-dimensional transthoracic echocardiogram was performed (2D, M-mode, Doppler and color flow Doppler). * The study was technically difficult. * A contrast injection of Definity was performed to improve assessment of LV function. * Contrast was injected into an intravenous site in the right arm. * One vial of Definity ultrasound contrast was diluted in normal saline to a total volume of 10 ml. A total of '2' ml of solution was administered during imaging. * Lot # [id number] of Definity utilized for procedure. * Expiration date 1APR19. * The attending nurse who injected the contrast agent was Devi Orellana RN. * Dobutamine stress echo was initiated. Resting ECG demonstrated sinus rhythm at 63 bpm. Study was aborted prior to any stress imaging was taken due to the fact that he developed headache and nausea. He also became hypertensive he received dobutamine up to 20 mcg before the study was aborted. His maximum heart rate was only 77 bpm, representing 48% MPHR. No stress imaging available for review. No arrhythmia. Resting blood pressure was 178/85 with a maximum blood pressure of 222/87mmHg. No chest pain. Left Ventricle * Normal left ventricular size and systolic function. EF 60-65%. No regional wall motion abnormalities. Mild concentric left ventricular hypertrophy. No significant diastolic dysfunction. Right Ventricle * The right ventricle is grossly normal size. * The right ventricular systolic function is normal as assessed by tricuspid annular plane systolic excursion (TAPSE) (normal >1.5 cm). Atria * The left atrium is not well visualized. * Right atrium not well visualized. Mitral Valve * The mitral valve is grossly normal. * There is no mitral valve stenosis. * Significant mitral regurgitation is absent. Tricuspid Valve * The tricuspid valve is not well visualized. * There is no tricuspid stenosis. * Significant tricuspid regurgitation is absent. Aortic Valve * The aortic valve is trileaflet. * No hemodynamically significant valvular aortic stenosis. * No aortic regurgitation is present. Pulmonic Valve * The pulmonary valve is inadequately visualized, but the Doppler data is adequate for interpretation. * There is no pulmonic valvular stenosis. * There is no significant pulmonary regurgitation. Great Vessels * The aortic root is normal size. * Aortic arch of normal dimension. Pericardium/Pleural * There is no pericardial effusion. Great Vessels * Normal IVC size with reduced inspiratory collapse. MMode 2D Measurements and Calculations IVSd 1.2 cm IVSs 1.4 cm LVIDd 4.1 cm LVIDs 2.7 cm LVPWd 1.2 cm LVPWs 1.4 cm IVS/LVPW 1.0 FS 34.2 % EDV(Teich) 73.9 ml ESV(Teich) 26.8 ml EF(Teich) 63.7 % EDV(cubed) 68.5 ml ESV(cubed) 19.5 ml EF(cubed) 71.5 % % IVS thick 16.1 % % LVPW thick 17.6 % LV mass(C)d 168.6 grams LV mass(C)dI 70.9 grams/m\S\2 LV mass(C)s 120.2 grams LV mass(C)sI 50.6 grams/m\S\2 SV(Teich) 47.1 ml SI(Teich) 19.8 ml/m\S\2 SV(cubed) 49.0 ml SI(cubed) 20.6 ml/m\S\2 Ao root diam 3.6 cm Ao root area 9.9 cm\S\2 ACS 1.8 cm LA dimension 4.2 cm LA/Ao 1.2 Doppler Measurements and Calculations MV E max derrick 63.4 cm/sec MV A max derrick 57.6 cm/sec MV E/A 1.1 MV P1/2t max derrick 81.5 cm/sec MV P1/2t 95.4 msec MVA(P1/2t) 2.3 cm\S\2 MV dec slope 250.3 cm/sec\S\2 MV dec time 0.40 sec Ao V2 max 103.6 cm/sec Ao max PG 4.3 mmHg Ao max PG (full) 2.3 mmHg LV V1 max PG 2.0 mmHg LV V1 max 71.4 cm/sec PA V2 max 83.3 cm/sec PA max PG 2.8 mmHg TR max derrick 254.2 cm/sec RVSP(TR) 33.9 mmHg RAP systole 8.0 mmHg
== END 2018-01-07 15:13 | disposition home or self-care (01) ==
LOC: C.EDB 12:46 → C.2T 15:36 → ENRESERV 15:56
PROVIDERS: ADMIT Internal Medicine; ATTEND Internal Medicine
DX: R07.9 Chest pain, unspecified (principal); I25.10 Atherosclerotic heart disease of native coronary artery without angina pectoris; E66.01 Morbid (severe) obesity due to excess calories; G43.909 Migraine, unspecified, not intractable, without status migrainosus; M54.5 Low back pain; K21.9 Gastro-esophageal reflux disease without esophagitis; F41.9 Anxiety disorder, unspecified; G47.00 Insomnia, unspecified; I10 Essential (primary) hypertension; F32.9 Major depressive disorder, single episode, unspecified; E11.9 Type 2 diabetes mellitus without complications; F17.200 Nicotine dependence, unspecified, uncomplicated; E78.5 Hyperlipidemia, unspecified; Z95.5 Presence of coronary angioplasty implant and graft; Z79.82 Long term (current) use of aspirin; Z79.899 Other long term (current) drug therapy; Z79.4 Long term (current) use of insulin; Z80.0 Family history of malignant neoplasm of digestive organs

== ENCOUNTER 2022-09-20 22:17 | Inpatient (IN) ==
[2022-09-20 22:36] LABS: Basophils # (auto) 0.08 K/uL (0-0.2); Eosinophils # (auto) 0.24 K/uL (0-0.50); Hematocrit (blood only) 41.2 % (42.0-52.0); Hemoglobin 14.5 g/dl (14.0-18.0); Immature Granulocytes # (auto) 0.02 K/uL (0.01-0.20); Immature Granulocytes % (auto) 0.2 %; Lymphocytes # (auto) 2.62 K/uL (1.2-3.4); Lymphocytes % (auto) 32.6 %; Mean Corpuscular Hemoglobin 31.4 pg (25.0-34.0); Mean Corpuscular Hgb Conc 35.2 g/dL (32.0-36.0); Mean Corpuscular Volume 89.2 fL (80.0-100.0); Mean Platelet Volume 10.6 fL (9.4-12.4); Monocytes # (auto) 0.75 K/uL (0.11-0.59); Monocytes % (auto) 9.3 %; Neutrophils # (auto) 4.33 K/uL (1.40-6.50); Neutrophils % (auto) 53.9 %; Platelet Count 180 K/uL (130-400); RDW Coefficient of Variation 13.1 % (11.5-14.5); RDW Standard Deviation 42.6 fL (36.4-46.3); Red Blood Count 4.62 M/uL (4.70-6.10); White Blood Count 8.04 K/ul (4.8-10.8)
[2022-09-20 23:08] LABS: Troponin I High Sensitivity 3.9 pg/ml (0-20)
--- NOTE | 2022-09-20 23:12 | Emergency Department Note ---
Impression & Plan Chest pain ED Provider Note INFORMANT: Patient ED PROVIDER(S): Toby Chu DO CHIEF COMPLAINT: Chest pain PLAN: Disposition: Admission Condition: Good Outpatient prescription management: none Referral: I spoke with the hospitalist, who will see the patient for admission/observation and further evaluation and consultation. MEDICAL DECISION MAKING: This is a 67-year-old male who presents to the ED with a chief complaint of some chest pain. The patient states that around 830 while he was sitting watching TV he developed a retrosternal chest pain that faded away in about 1 or 2 minutes. He states that it returned a short while later and it lasted for about 3 minutes and seemed to be a little more intense. He then had a third episode that was even more intense and radiated to the shoulder blades and into the arm. That episode lasted for about 5 minutes. Shortly following this he took a total of nitroglycerin. And he called EMS. The time that his episodes occurred was about 30 minutes in total from the onset of the first symptom till the third ev ent. Each 1 lasted anywhere from 1 to 5 minutes. He states that when the ambulance arrived he had a fourth episode that was very brief and less intense than the others. He thinks that this was improved by his nitroglycerin. The patient states that he has a stent in the LAD and in the posterior aspect of the heart. He had these placed in 2013 from an [place]. His vital signs reveal hypertension. His physical exam was unremarkable. His oxygen saturation was noted to be 87% on room air. The patient does not have any home oxygen use. CBC did not show leukocytosis or anemia. The chemistry panel shows a mildly elevated BUN of 26 and creatinine is 1.45. Chemistry panel was otherwise without electrolyte abnormality. Troponin was negative for myocardial infarction. Lipase was negative for pancreatitis. Chest x-ray did not show acute process. EKG shows a sinus rhythm. CT scan of the chest did not show PE or airspace disease. There were some nonspecific bronchial inflammation. The e xact cause of the patient's hypoxia is unclear. Chest pain is a little concerning although no evidence of acute myocardial infarction or elevated troponin. The patient will be seen by the hospitalist for further evaluation and care Triage Nursing notes reviewed. Vital Signs: reviewed Prior /Outside records reviewed: none Differential diagnosis: The differential that was considered includes acute myocardial infarction, acute coronary syndrome, myocarditis, pericarditis, pericardial effusions /tamponade, esophageal perforation, thoracic aortic dissection, pulmonary embolism, pneumonia, pneumothorax, pancreatitis, shingles, acute cholecystitis, perforated abdominal viscus. Diagnostics, as interpreted by me: 12 lead ECG: Normal sinus rhythm at a rate of 73. No ST elevation. No PVCs. Normal QTC. Cardiac Monitoring: [none] Medical decision rules: [none] Imaging studies: Chest x-ray: No acute process. No pneumonia or pneumothorax Procedures: none. Critical care: none. HPI: See MDM above. PAST MEDICAL HISTORY: See Below PAST SURGICAL HISTORY: See Below SOCIAL HISTORY: See Below HOME MEDICATIONS: See Below ALLERGIES: See Below VITALS: See Below PHYSICAL EXAMINATION: CONSTITUTIONAL/VITAL SIGNS: Reviewed GENERAL: Non-toxic in appearance. INTEGUMENTARY: Warm, dry, and [place]. HEAD: Normocephalic. EYES: without scleral icterus. ENT/OROPHARYNX: clear and moist. RESPIRATORY: No increased work of breathing. Lungs clear. CARDIOVASCULAR: Regular rate. Regular rhythm. GI/ABDOMEN: Soft and nontender. . EXTREMITIES: Normal NEUROLOGICAL: Intact without focal deficits. PSYCHIATRIC: Normal affect. MUSCULOSKELETAL: Normal. TRIAGE NURSING DOCUMENTATION REVIEWED. Past Med/Surg History Medical History Acute exacerbation of chronic low back pain Anemia Anxiety Atypical chest pain Borderline diabetes DIET MANAGED CAD (coronary artery disease) (06/28/14) Chronic hyponatremia Chronic low back pain with left-sided sciatica COVID-19 Depression GERD (gastroesophageal reflux disease) Gross hematuria Hiatal hernia Hyperlipidemia Hypertension Migraine Musculoskeletal chest pain Myocardial Infarction 2013 [facility] F/U DR JULIEN Osteoarthritis Peripheral edema Primary hypertension Stage 3a chronic kidney disease Type 2 diabetes mellitus without complication, without long-term current use of insulin diet controlled Surgical History Fusion of spine CERVICAL History of adenoidectomy History of cardiac cath History of colonoscopy History of discectomy LUMBAR DISCECTOMY History of heart artery stent 2 STENTS 2013 AT [facility] History of tonsillectomy History of tooth extraction History of total knee replacement LEFT Lipoma REMOVED FROM BACK AND ABDOMEN Family History Other Cancer Social History Smoking Status: Former smoker Tobacco Type: Cigarettes Cigarettes Per Day: 10-20 CIG DAILY; Second Hand Exposure: No; Hx Alcohol Use: No Hx Substance Use: No Preferred Language: Mongolian Communication Ability: Effective Range Mounter Required: No Beliefs That Will Affect Care: None marital status: Current Living Situation: Spouse current occupational status: retired Feels Safe at Home: Yes Seatbelt Use: always Sunscreen Use: No Assistive Devices: Glasses Allergies Allergies Allergy/AdvReac Type Severity Reaction Status Date / Time Penicillins Allergy Mild RASH/HIVES Verified 05/27/22 13:02 PER H&P OF DR GUNDERSON Home Meds Home Medications Medication Instructions Recorded Confirmed albuterol sulfate 90 mcg/actuation 2 puff inhalation QID PRN 07/21/18 09/20/22 aerosol inhaler (ProAir HFA) Shortness Of Breath aspirin 81 mg tablet,delayed 81 mg PO QAM 07/21/18 09/20/22 release trospium 20 mg tablet 20 mg PO .bedtime 05/27/22 09/20/22 carboxymethylcellulose 0.5 1 drp ophthalmic (eye) DAILY PRN 09/20/22 09/20/22 %-glycerin 0.9 % eye drops Dry Eyes (Refresh Relieva) carisoprodol 350 mg tablet 350 mg PO DAILY PRN Muscle Spasm 09/20/22 09/20/22 clonazepam 1 mg tablet 1 mg PO HS 09/20/22 09/20/22 loteprednol etabonate 0.5 % eye 1 drp ophthalmic (eye) DAILY PRN 09/20/22 09/20/22 drops,suspension Dry Eyes venlafaxine 75 mg capsule,extended 75 mg PO DAILY 09/20/22 09/20/22 release 24 hr Previous Rx's Medication Instructions Recorded atorvastatin 80 mg tablet 80 mg PO QAM #90 tabs 11/07/20 famotidine 20 mg tablet 20 mg PO BID #180 tabs 11/07/20 trazodone 100 mg tablet 200 mg PO HS PRN insomnia #180 tabs 05/27/21 furosemide 20 mg tablet 10 mg PO DAILY PRN edema #45 tabs 11/20/21 nitroglycerin 0.4 mg sublingual 0.4 mg sublingual UD PRN Chest 12/15/21 tablet (Nitrostat) Pain #25 tabs isosorbide mononitrate 60 mg 60 mg PO QAM #90 tabs 06/10/22 tablet,extended release 24 hr metoprolol succinate 100 mg 100 mg PO DAILY #90 tabs 06/10/22 tablet,extended release 24 hr olmesartan 40 mg tablet 40 mg PO DAILY #90 tabs 09/15/22 Results & Data (ED) Vital Signs Vital Signs - 24 hr 09/20/22 22:21 09/20/22 22:27 09/20/22 22:28 Temperature 36.6 C Temperature Source Oral Pulse Rate 73 Pulse Rate from SpO2 Sensor Respiratory Rate 18 Blood Pressure 164/87 H Blood Pressure Mean 112 Blood Pressure Position Sitting Pulse Oximetry 97 89 L 87 L Oxygen Delivery Method Room Air Room Air Room Air Oxygen Flow Rate Sepsis Recent Fever Within 48 Hours No Sepsis New/Unexplained Change in Mental Status N/A Sepsis Action Taken by Nursing No Action Required Oxygen Flow Rate - Titration 3 Pulse Oximetry Post Tiitration 91 09/20/22 23:00 09/21/22 00:47 09/21/22 01:00 Temperature Temperature Source Pulse Rate 71 75 64 Pulse Rate from SpO2 Sensor 71 64 Respiratory Rate 24 22 24 Blood Pressure 144/78 H 123/82 Blood Pressure Mean 100 95 Blood Pressure Position Pulse Oximetry 97 95 96 Oxygen Delivery Method Nasal Cannula Nasal Cannula Nasal Cannula Oxygen Flow Rate 2 2 2 Sepsis Recent Fever Within 48 Hours Sepsis New/Unexplained Change in Mental Status Sepsis Action Taken by Nursing Oxygen Flow Rate - Titration Pulse Oximetry Post Tiitration Laboratory Data 09/20/22 Unknown 09/20/22 Unknown Lab Results 09/20/22 09/20/22 09/20/22 Range/Units 22:27 22:27 Unknown WBC 8.04 (4.8-10.8) K/ul RBC 4.62 L (4.70-6.10) M/uL Hgb 14.5 (14.0-18.0) g/dl Hct 41.2 L (42.0-52.0) % MCV 89.2 (80.0-100.0) fL MCH 31.4 (25.0-34.0) pg MCHC 35.2 (32.0-36.0) g/dL RDW Std Deviation 42.6 (36.4-46.3) fL RDW Coeff of [place] 13.1 (11.5-14.5) % Plt Count 180 (130-400) K/uL MPV 10.6 (9.4-12.4) fL Immature Gran % (Auto) 0.2 % Neut % (Auto) 53.9 % Lymph % (Auto) 32.6 % [place] % (Auto) 9.3 % Eos % (Auto) 3.0 % Baso % (Auto) 1.0 % Neut # (Auto) 4.33 (1.40-6.50) K/uL Lymph # (Auto) 2.62 (1.2-3.4) K/uL [place] # (Auto) 0.75 H (0.11-0.59) K/uL Eos # (Auto) 0.24 (0-0.50) K/uL Baso # (Auto) 0.08 (0-0.2) K/uL Immature Gran # (Auto) 0.02 (0.01-0.20) K/uL Sodium 138 (136-145) mmol/L Potassium 4.0 (3.5-5.1) mmol/L Chloride 104 (98-107) mmol/L Carbon Dioxide 28 (21-32) mmol/L Anion Gap 6 (3-11) BUN 26 H (6-23) mg/dl Creatinine 1.45 H (0.6-1.4) mg/dl Est Cr Clr Drug Dosing 63.9 ml/min Est GFR ( Amer) 57.3 ml/min Est GFR (Non-Af Amer) 49.5 ml/min BUN/Creatinine Ratio 17.9 (10-20) Glucose 128 H (70-99(Fasting)) mg/dl Calcium 9.4 (8.5-10.1) mg/dl Total Bilirubin 0.3 (0.2-1.0) mg/dl AST 24 (13-39) U/L ALT 30 (7-52) U/L Alkaline Phosphatase 68 (34-104) U/L Troponin I High Sens 3.9 (0-20) pg/ml Total Protein 6.7 (6.0-8.3) gm/dl Albumin 4.0 (3.4-5.0) gm/dl Globulin 2.7 (2.5-4.0) gm/dl Albumin/Globulin Ratio 1.5 (0.9-2) Lipase 21 (11-82) U/L SARS-CoV-2, RNA, NAAT NEGATIVE (NEGATIVE) Administered Medications Discontinued Medications Ioversol (Optiray 320 500ml) 125 ml IV ONCE ONE Stop: 09/21/22 00:50 Last Admin: 09/21/22 00:49 Dose: 108 ml Documented By: XIMENA Discharge Plan Visit Data Chief Complaint: Chest Pain ED Provider: Toby Chu Discharge Problem: Chest pain Patient Disposition: Being Evaluated by Hospitalist Forms Stand Alone Forms: [facility] Prescriptions Prescriptions: No Action atorvastatin 80 mg tablet 80 mg PO QAM Qty: 90 3RF famotidine 20 mg tablet 20 mg PO BID Qty: 180 3RF trazodone 100 mg tablet 200 mg PO HS PRN (Reason: insomnia) Qty: 180 0RF nitroglycerin [Nitrostat] 0.4 mg tablet, sublingual 0.4 mg Sublingual UD PRN (Reason: Chest Pain) Qty: 25 1RF isosorbide mononitrate 60 mg tablet extended release 24 hr 60 mg PO QAM Qty: 90 3RF metoprolol succinate 100 mg tablet extended release 24 hr 100 mg PO DAILY Qty: 90 3RF olmesartan 40 mg tablet 40 mg PO DAILY Qty: 90 3RF trospium 20 mg tablet 20 mg PO .bedtime Rx Instructions: administer on an empty stomach furosemide 20 mg tablet 10 mg PO DAILY PRN (Reason: edema) Qty: 45 2RF Rx Instructions: Restart as needed for SBP >130 mmHg aspirin 81 mg Tablet,Delayed Release (Dr/Ec) 81 mg PO QAM albuterol sulfate [ProAir HFA] 90 mcg/actuation Hfa Aerosol Inhaler 2 puff INHALATION QID PRN (Reason: Shortness Of Breath) carisoprodol 350 mg tablet 350 mg PO DAILY PRN (Reason: Muscle Spasm) venlafaxine 75 mg capsule,extended release 24hr 75 mg PO DAILY clonazepam 1 mg tablet 1 mg PO HS loteprednol etabonate 0.5 % drops,suspension 1 drp ophthalmic (eye) DAILY PRN (Reason: Dry Eyes) Refresh Relieva 0.5-0.9 % Drops 1 drp ophthalmic (eye) DAILY PRN (Reason: Dry Eyes) Referrals Referrals: Cortez Horowitz MD [Primary Care Provider] -
[2022-09-20 23:56] LABS: Bilirubin,Total 0.3 mg/dl (0.2-1.0); Calcium 9.4 mg/dl (8.5-10.1)
[2022-09-21 00:03] LABS: Albumin Globulin Ratio 1.5 (0.9-2); BUN Creatinine Ratio 17.9 (10-20); Creatinine Clr Calc Pharmacy 63.9 ml/min; Est GFR (African American) 57.3 ml/min; Est GFR (Non-African American) 49.5 ml/min; Globulin 2.7 gm/dl (2.5-4.0); Total Protein 6.7 gm/dl (6.0-8.3)
[2022-09-21] MEDS ORDERED: OPTIRAY 320 500ml IV ONE (00:49)
[2022-09-21] MEDS ORDERED: ALBUT/IPRATROP 3MG/0.5MG NEB 3 ML VIAL NEB STA (01:44)
--- NOTE | 2022-09-21 02:09 | History & Physical Report ---
Date of Service September 21, 2022 Assessment & Plan (1) Chest pain: Plan: Landon is a 67 year old male w/ PmHx BPH, LUTS, CKD Stage 3a, h/o [place] in 2014 s/p 2 GRACE, PVD admitted for chest pain. Chest pain at rest: -Hx of AZ in 2014 w/ 2 stents to LAD. -CBC, electrolytes, lipase, troponin WNL. -CTA chest w/o evidence for PE. -EKG w/ NSR w/o ST changes. -Negative dobutamine stress test from 09/2021. -Will recheck troponin x1, if WNL can stop trending. -Ordered TTE to r/o wall motion defects from possible [place]. -Continue home metoprolol, isosorbide mononitrate, atorvastatin, aspirin, nitroglycerin PRN. Hypoxia: -Hypoxic to 87% on arrival, vitals otherwise stable. -CTA chest with evidence of bronchial wall thickening/nonspecific inflammation. -No home O2 requirement. -Less likely infectious cause, may be secondary to increased respiratory drive with pain. -Wean as tolerated off O2. CKD Stage 3a: -Chronic, continue to monitor. HTN: -Continue home metoprolol, olmesartan. BPH: -Continue home trospium Anxiety/depression: -Continue home venlafaxine. Insomnia: -Continue patient's home trazodone. HLD: -Continue home statin. Reflux: -Continue home famotidine BID. DVT Prophylaxis: SCDs. F/E/N/GI: Heart healthy diet Code status: DNR/DNI Dispo: Med/surg tele. (2) Hypoxia: (3) Chest pain at rest: (4) BPH (benign prostatic hyperplasia): (5) Primary hypertension: (6) Type 2 diabetes mellitus without complication, without long-term current use of insulin: (7) Stage 3a chronic kidney disease: (8) Status post insertion of drug-eluting stent into left anterior descending (LAD) artery: (9) Anxiety: (10) Depression: (11) CAD (coronary artery disease): (12) Hyperlipidemia: History of Present Illness Chief Complaint: Chest pain Primary Care Provider: Cortez Horowitz MD Landon is a 67 year old male w/ PmHx BPH, LUTS, CKD Stage 3a, h/o AZ in 2014 s /p 2 GRACE, PVD coming in for acute chest pain. Patient states that earlier today around 8:30PM as he was trying to go to sleep in bed he started to develop sharp chest pain at the center of his chest. He had 3 episodes of chest pain in total over the course of 30 minutes with the last episode of chest pain being the most painful and went to his left shoulder and shoulder blade. He endorses real carter uring these episodes and states that the pain was similar to the pain he felt in 2013 when he had an [place] that resulted in 2 stents. He denies any shortness of breath, difficulty breathing, vomiting, fevers, chills, diaphoresis. He states he was a smoker up until he quit 2.5 years ago and has since had yearly low dose CT scans which have been normal. Other than that he had a bout of pneumonia back in July for which he was treated with antibiotics and did well. He does not require any home oxygen, denies a history of sleep apnea. In the ED he was noted to have an O2 saturation of 87%, CBC and electrolytes WNL, lipase normal, BUN 26, Creat 1.45, EKG showed NSR w/o acute ST changes, troponin negative. CXR negative, CTA chest negative for PE but had some nonspecific bronchial changes - patient was given albuterol neb treatment. Allergies Allergy/AdvReac Type Severity Reaction Status Date / Time Penicillins Allergy Mild RASH/HIVES Verified 05/27/22 13:02 PER H&P OF DR GUNDERSON Home Medications Medication Instructions Recorded Confirmed Type albuterol sulfate 90 mcg/actuation 2 puff inhalation QID PRN 07/21/18 09/20/22 History aerosol inhaler (ProAir HFA) Shortness Of Breath aspirin 81 mg tablet,delayed 81 mg PO QAM 07/21/18 09/20/22 History release atorvastatin 80 mg tablet 80 mg PO QAM #90 tabs 11/07/20 09/20/22 Rx famotidine 20 mg tablet 20 mg PO BID #180 tabs 11/07/20 09/20/22 Rx trazodone 100 mg tablet 200 mg PO HS PRN insomnia #180 tabs 05/27/21 09/20/22 Rx furosemide 20 mg tablet 10 mg PO DAILY PRN edema #45 tabs 11/20/21 09/20/22 Rx nitroglycerin 0.4 mg sublingual 0.4 mg sublingual UD PRN Chest 12/15/21 09/20/22 Rx tablet (Nitrostat) Pain #25 tabs trospium 20 mg tablet 20 mg PO .bedtime 05/27/22 09/20/22 History isosorbide mononitrate 60 mg 60 mg PO QAM #90 tabs 06/10/22 09/20/22 Rx tablet,extended release 24 hr metoprolol succinate 100 mg 100 mg PO DAILY #90 tabs 06/10/22 09/20/22 Rx tablet,extended release 24 hr olmesartan 40 mg tablet 40 mg PO DAILY #90 tabs 09/15/22 09/20/22 Rx carboxymethylcellulose 0.5 1 drp ophthalmic (eye) DAILY PRN 09/20/22 09/20/22 History %-glycerin 0.9 % eye drops Dry Eyes (Refresh Relieva) carisoprodol 350 mg tablet 350 mg PO DAILY PRN Muscle Spasm 09/20/22 09/20/22 History clonazepam 1 mg tablet 1 mg PO HS 09/20/22 09/20/22 History loteprednol etabonate 0.5 % eye 1 drp ophthalmic (eye) DAILY PRN 09/20/22 09/20/22 History drops,suspension Dry Eyes venlafaxine 75 mg capsule,extended 75 mg PO DAILY 09/20/22 09/20/22 History release 24 hr Past Med/Surg History Medical History Acute exacerbation of chronic low back pain Anemia Anxiety Atypical chest pain Borderline diabetes DIET MANAGED CAD (coronary artery disease) (06/28/14) Chronic hyponatremia Chronic low back pain with left-sided sciatica COVID-19 Depression GERD (gastroesophageal reflux disease) Gross hematuria Hiatal hernia Hyperlipidemia Hypertension Migraine Musculoskeletal chest pain Myocardial Infarction [address] [facility] F/U DR JULIEN Osteoarthritis Peripheral edema Primary hypertension Stage 3a chronic kidney disease Type 2 diabetes mellitus without complication, without long-term current use of insulin diet controlled Surgical History Fusion of spine CERVICAL History of adenoidectomy History of cardiac cath History of colonoscopy History of discectomy LUMBAR DISCECTOMY History of heart artery stent 2 STENTS 2013 AT [facility] History of tonsillectomy History of tooth extraction History of total knee replacement LEFT Lipoma REMOVED FROM BACK AND ABDOMEN Family History Other Cancer Social History Smoking Status: Former smoker Tobacco Type: Cigarettes Cigarettes Per Day: 10-20 CIG DAILY; Smoking End Date: 2020; Second Hand Exposure: No; Do You Dip or Chew Tobacco: No; Hx Alcohol Use: No Hx Substance Use: No Preferred Language: Fijian Communication Ability: Effective Front Office Assistant Required: No Beliefs That Will Affect Care: None marital status: Current Living Situation: Spouse current occupational status: retired Feels Safe at Home: Yes Safety Concerns: Feels Safe At This Time Seatbelt Use: always Sunscreen Use: No Assistive Devices: None Review of Systems Review of Systems: As per HPI. Physical Exam Constitutional: WD/WN, vitals as above Eyes: PERRL, conjunctivae normal, anicteric sclerae Respiratory: normal respiratory effort, lungs clear to auscultation Cardiovascular: RRR, no murmur, no edema Chest (Breasts): normal inspection/palpation of breasts Gastrointestinal (Abdomen): normal bowel sounds, soft, nontender, no hepatosplenomegaly Skin: no rashes, warm and dry Psychiatric: A+Ox3, euthymic affect Results & Data Results & Data ([facility]) Vital Signs (Past 12 Hours) Vital Signs Temp Pulse Resp BP Pulse Ox O2 Del Method O2 Flow Rate 09/21/22 01:00 64 24 123/82 96 Nasal Cannula 2 09/21/22 00:47 75 22 144/78 H 95 Nasal Cannula 2 09/20/22 23:00 71 24 97 Nasal Cannula 2 09/20/22 22:28 87 L Room Air 09/20/22 22:27 89 L Room Air 09/20/22 22:21 36.6 C 73 18 164/87 H 97 Room Air Supervising Physician Co-Signing Physician Notes Patient seen and examined, chart reviewed, case discussed with Dr. Gunn and I agree with the assessment and plan as above Resident Activity Tracking Resident Involvement: Resident Care Provided Care Provided: Adult [facility] Medicine
[2022-09-21] MEDS ORDERED: traZODone HCL 50 MG TAB PO PRN (03:54)
[2022-09-21] MEDS ORDERED: ACETAMINOPHEN 325 MG TAB PO PRN (03:54)
[2022-09-21] MEDS ORDERED: CARISOPRODOL 350 MG TABLET PO PRN (03:54)
[2022-09-21] MEDS ORDERED: ALBUTEROL HFA 8 GM INHALER INH PRN (03:54)
[2022-09-21] MEDS ORDERED: NITROGLYCERIN SL 0.4 MG/TAB TAB SL PRN (03:54)
--- NOTE | 2022-09-21 06:19 | Billing Data ---
Date of Service September 21, 2022 Coding Level of Care Code 03711 INT INP/OBS CARE
--- NOTE | 2022-09-21 06:46 | Hospitalist Progress Note ---
Date of Service September 21, 2022 Assessment & Plan (1) Chest pain: Plan: Landon is a 67 year old male w/ PmHx BPH, LUTS, CKD Stage 3a, h/o [place] in 2013 s/p 2 GRACE, PVD admitted for chest pain. Chest pain at rest: -Hx of [place] in 2013 w/ 2 stents to LAD. -CBC, electrolytes, lipase, troponin WNL. -CTA chest w/o evidence for PE. -EKG w/ NSR w/o ST changes. -Negative dobutamine stress test from 09/2021. -Will recheck troponin x1, if WNL can stop trending. -Ordered TTE to r/o wall motion defects from possible [place]. -Continue home metoprolol, isosorbide mononitrate, atorvastatin, aspirin, nitroglycerin PRN. Hypoxia: -Hypoxic to 87% on arrival, vitals otherwise stable. -CTA chest with evidence of bronchial wall thickening/nonspecific inflammation. -No home O2 requirement. -Less likely infectious cause, may be secondary to increased respiratory drive with pain. -Wean as tolerated off O2. CKD Stage 3a: -Chronic, continue to monitor. HTN: -Continue home metoprolol, olmesartan. BPH: -Continue home trospium Anxiety/depression: -Continue home venlafaxine. Insomnia: -Continue patient's home trazodone. HLD: -Continue home statin. Reflux: -Continue home famotidine BID. DVT Prophylaxis: SCDs. F/E/N/GI: Heart healthy diet Code status: DNR/DNI Dispo: Med/surg tele. (2) Hypoxia: (3) Chest pain at rest: (4) BPH (benign prostatic hyperplasia): (5) Primary hypertension: (6) Type 2 diabetes mellitus without complication, without long-term current use of insulin: (7) Stage 3a chronic kidney disease: (8) Status post insertion of drug-eluting stent into left anterior descending (LAD) artery: (9) Anxiety: (10) Depression: (11) CAD (coronary artery disease): (12) Hyperlipidemia: Admission and Anticipated Discharge Date Admission Date: September 21, 2022 Review of Systems Review of Systems: As per HPI. Results & Data Results & Data ([facility]) Vital Signs (Past 12 Hours) Vital Signs Temp Pulse Pulse Resp BP BP Pulse Ox 09/21/22 03:47 67 09/21/22 03:54 36.5 C 69 20 164/82 H 100 09/21/22 03:00 69 20 130/77 97 09/21/22 02:00 62 13 128/81 96 09/21/22 01:00 64 24 123/82 96 09/21/22 00:47 75 22 144/78 H 95 09/20/22 23:00 71 24 97 09/20/22 22:28 87 L 09/20/22 22:27 89 L 09/20/22 22:21 36.6 C 73 18 164/87 H 97 O2 Del Method O2 Flow Rate 09/21/22 03:47 09/21/22 03:54 Nasal Cannula 3 09/21/22 03:00 Nasal Cannula 3 09/21/22 02:00 Nasal Cannula 3 09/21/22 01:00 Nasal Cannula 2 09/21/22 00:47 Nasal Cannula 2 09/20/22 23:00 Nasal Cannula 2 09/20/22 22:28 Room Air 09/20/22 22:27 Room Air 09/20/22 22:21 Room Air Resident Activity Tracking Resident Involvement: Resident Care Provided Care Provided: Adult Hospital Medicine
--- NOTE | 2022-09-21 07:24 | CT Scan Report ---
CHEST CTA for PULMONARY ARTERIES CT DOSE: 792.42 mGy.cm HISTORY: hypoxia TECHNIQUE: Multiaxial CT images of the chest were performed following the intravenous administration of contrast to evaluate the pulmonary arteries. Maximal intensity projection images were also obtaine d. A dose lowering technique was utilized adhering to the principles of ALARA. COMPARISON STUDY: CT lung screening 08/20/2022. FINDINGS: The visualized liver, spleen, and adrenal glands are unremarkable. No mediastinal or hilar lymphadenopathy. Normal esophagus. Severe coronary artery calcifications are noted. No pleural or per icardial effusions. No evidence for an aortic dissection. Nondiagnostic evaluation of the right lower lobe subsegmental pulmonary arteries due to the motion artifact. The remaining pulmonary arteries ar e patent with no evidence for a pulmonary embolus. No acute fractures. Mild central bronchial wall th ickening. No pneumothorax. Mosaic attenuation within the lungs consistent with mild air trapping. Thi s could be due to small airways disease. Otherwise, no focal lung consolidations identified. IMPRESSION: 1. No evidence for a pulmonary embolus. 2. Mosaic attenuation within the lungs which favors air trapping from small airways disease. 3. No focal lung consolidations to suggest a pneumonia. ACT 112: Negative or not required by law. Electronically signed by: Ranjeet Mayer M.D. 09/21/2022 7:23 AM
--- NOTE | 2022-09-21 08:35 | XRay Report ---
XR chest 1V portable HISTORY: Chest pain, nonspecific COMPARISON: Chest 08/17/2022. FINDINGS: The lungs are clear. Cardiac silhouette is normal in size. No pleural effusions. No pneumot horax. IMPRESSION: No acute process. ACT 112: Negative or not required by law. Electronically signed by: Ranjeet Mayer M.D. 09/21/2022 8:34 AM
[2022-09-21] MEDS ORDERED: ISOSORBIDE MONO EXTENDED REL 60 MG TABCR PO SCH (09:00)
[2022-09-21] MEDS ORDERED: METOPROLOL SUCC 50MG EXT REL TAB PO SCH (09:00)
[2022-09-21] MEDS ORDERED: FAMOTIDINE 20 MG TAB PO SCH (09:00)
[2022-09-21] MEDS ORDERED: ASPIRIN 81 MG ECTAB PO SCH (09:00)
[2022-09-21] MEDS ORDERED: OLMESARTAN MEDOXOMIL 40 MG TAB PO SCH (09:00)
[2022-09-21] MEDS ORDERED: VENLAFAXINE HCL XR 75 MG CAPXR PO SCH (09:00)
[2022-09-21] MEDS ORDERED: ATORVASTATIN 40 MG TAB PO SCH (09:00)
--- NOTE | 2022-09-21 09:21 | XCELERA ---
[id number]
--- NOTE | 2022-09-21 10:02 | Electrocardiogram Report ---
Test Reason : Blood Pressure : / mmHG Vent. Rate : 073 BPM Atrial Rate : 073 BPM P-R Int : 206 ms QRS Dur : 082 ms QT Int : 400 ms P-R-T Axes : 049 049 075 degrees QTc Int : 440 ms Normal sinus rhythm Normal ECG When compared with ECG of 27-FEB-2022 12:15, Fusion complexes are no longer Present Confirmed by Ronine Multani ([id number]) on 09/21/2022 10:02:00 AM Referred By: REFERRED SELF Confirmed By:Ronnie Multani
--- NOTE | 2022-09-21 12:57 | Discharge Summary ---
Discharge Summary Date of Service September 21, 2022 Notes For Next Care Provider Medication Changes From Visit see attending attestation Admission HPI Per Admitting Provider Landon is a 67 year old male w/ PmHx BPH, LUTS, CKD Stage 3a, h/o FL in 2014 s/p 2 GRACE, PVD coming in for acute chest pain. Patient states that earlier today around 8:30PM as he was trying to go to sleep in bed he started to develop sharp chest pain at the center of his chest. He had 3 episodes of chest pain in total over the course of 30 minutes with the last episode of chest pain being the most painful and went to his left shoulder and shoulder blade. He endorses nasuea during these episodes and states that the pain was similar to the pain he felt in 2013 when he had an FL that resulted in 2 stents. He denies any shortness of breath, difficulty breathing, vomiting, fevers, chills, diaphoresis. He states he was a smoker up until he quit 2.5 years ago and has since had yearly low dose CT scans which have been normal. Other than that he had a bout of pneumonia back in July for which he was treated with antibiotics and did well. He does not require any home oxygen, denies a history of sleep apnea. In the ED he was noted to have an O2 saturation of 87%, CBC and electrolytes WNL, lipase normal, BUN 26, Creat 1.45, EKG showed NSR w/o acute ST changes, troponin negative. CXR negative, CTA chest negative for PE but had some nonspecific bronchial changes - patient was given albuterol neb treatment. Admission Exam Per Admitting Provider Constitutional: WD/WN, vitals as above Eyes: PERRL, conjunctivae normal, anicteric sclerae Respiratory: normal respiratory effort, lungs clear to auscultation Cardiovascular: RRR, no murmur, no edema Chest (Breasts): normal inspection/palpation of breasts Gastrointestinal (Abdomen): normal bowel sounds, soft, nontender, no hepatosplenomegaly Skin: no rashes, warm and dry Psychiatric: A+Ox3, euthymic affect Principal Dx & Hospital Course #1 = Principal Diagnosis (1) Chest pain: Landon is a 67 year old male w/ PmHx BPH, LUTS, CKD Stage 3a, h/o FL in 2014 s/p 2 GRACE, PVD admitted for chest pain. Chest pain at rest: The substernal pressure/pain and radiation to the left arm suggests cardiac etiology, however negative troponin, stress echo, ekg and involvement of the left shoulder blade suggests a possible GI etiology such as referred pain from GERD despite no reflux symptoms experienced by patient. -Hx of FL in 2013 w/ 2 stents to LAD. -CBC, electrolytes, lipase, troponin WNL. -CTA chest w/o evidence for PE. -EKG w/ NSR w/o ST changes. -Negative dobutamine stress test from 09/2021. -TTE Echo 09/21/2022: LV fn normal; EF 55-60%; mild concentric LVH; mild mitral Regurgitation -Continue home metoprolol succinate 100 mg daily, isosorbide mononitrate 60 mg PRN, atorvastatin 80 mg daily, aspirin 81 mg daily, nitroglycerin PRN. -Stress Echo with dobutamine: no abnormalities found -Currently pt takes famotidine 40mg bid, however now start this once per day QHS and then take omeprazole 20 mg QAM as a change in regimen. Hypoxia: Considered undiagnosed chronic COPD etiology, obesity hypoventilation syndrome, and SULMA. Bicarb was at 28 which makes OHS possible. -Hypoxic to 87% on arrival, now 95% Room Air. -CTA chest with evidence of bronchial wall thickening/nonspecific inflammation. -No home O2 requirement. -Less likely infectious cause, may be secondary to increased respiratory drive with pain. -Discontinued O2; -consider PFT tests outpatient due to history of smoking 40 years at 2 packs per day -Consider SULMA evaluation as outpatient as well CKD Stage 3a: -Chronic, continue to monitor. HTN: -Continue home metoprolol succinate 100 mg daily, olmesartan 40 mg daily. BPH: -Continue home trospium Anxiety/depression: -Continue home venlafaxine. Insomnia: -Continue patient's home trazodone. HLD: -Continue home statin. Reflux: -Continue home famotidine BID. DVT Prophylaxis: SCDs. F/E/N/GI: Heart healthy diet Code status: DNR/DNI Dispo: discharge (2) Hypoxia: (3) Chest pain at rest: (4) BPH (benign prostatic hyperplasia): (5) Primary hypertension: (6) Type 2 diabetes mellitus without complication, without long-term current use of insulin: (7) Stage 3a chronic kidney disease: (8) Status post insertion of drug-eluting stent into left anterior descending (LAD) artery: (9) Anxiety: (10) Depression: (11) CAD (coronary artery disease): (12) Hyperlipidemia: Discharge Exam Constitutional WD/WN, vitals as above Eyes PERRL, conjunctivae normal, anicteric sclerae Respiratory normal respiratory effort, lungs clear to auscultation Cardiovascular RRR, no murmur, no edema Skin no rashes, warm and dry Psychiatric A+Ox3, euthymic affect Updated Medication List Medication Instructions Recorded Confirmed Type albuterol sulfate 90 mcg/actuation 2 puff inhalation QID PRN 07/21/18 09/20/22 History aerosol inhaler (ProAir HFA) Shortness Of Breath aspirin 81 mg tablet,delayed 81 mg PO QAM 07/21/18 09/20/22 History release atorvastatin 80 mg tablet 80 mg PO QAM #90 tabs 11/07/20 09/20/22 Rx famotidine 20 mg tablet 20 mg PO BID #180 tabs 11/07/20 09/20/22 Rx trazodone 100 mg tablet 200 mg PO HS PRN insomnia #180 tabs 05/27/21 09/20/22 Rx furosemide 20 mg tablet 10 mg PO DAILY PRN edema #45 tabs 11/20/21 09/20/22 Rx nitroglycerin 0.4 mg sublingual 0.4 mg sublingual UD PRN Chest 12/15/21 09/20/22 Rx tablet (Nitrostat) Pain #25 tabs trospium 20 mg tablet 20 mg PO .bedtime 05/27/22 09/20/22 History isosorbide mononitrate 60 mg 60 mg PO QAM #90 tabs 06/10/22 09/20/22 Rx tablet,extended release 24 hr metoprolol succinate 100 mg 100 mg PO DAILY #90 tabs 06/10/22 09/20/22 Rx tablet,extended release 24 hr olmesartan 40 mg tablet 40 mg PO DAILY #90 tabs 09/15/22 09/20/22 Rx carboxymethylcellulose 0.5 1 drp ophthalmic (eye) DAILY PRN 09/20/22 09/20/22 History %-glycerin 0.9 % eye drops Dry Eyes (Refresh Relieva) carisoprodol 350 mg tablet 350 mg PO DAILY PRN Muscle Spasm 09/20/22 09/20/22 History clonazepam 1 mg tablet 1 mg PO HS 09/20/22 09/20/22 History loteprednol etabonate 0.5 % eye 1 drp ophthalmic (eye) DAILY PRN 09/20/22 09/20/22 History drops,suspension Dry Eyes venlafaxine 75 mg capsule,extended 75 mg PO DAILY 09/20/22 09/20/22 History release 24 hr omeprazole 20 mg capsule,delayed 20 mg PO DAILY 12 weeks #84 caps 09/21/22 Rx release Hospital Stay Data Consultations 09/21/22 02:00 ED Decision to Admit Stat Diagnostic Imagining Performed 09/20/22 23:15 CT angio chest PE protocol Stat Discharge Instructions Given to Patient (Per Discharging Provider) You were admitted to the hospital for multiple episode of chest pain at rest last evening w/o associated shortness of breath or pain with breathing. You received a full cardiac workup which was overwhelmingly reassuring. You EKG, chest X Ray, chest CT scan, troponin (marker for ischemic heart stress), echocardiogram (heart ultrasound), and stress test were all negative. This is very reassuring that the pain that you were having in your chest, was not related to lack of blood flow to your heart. As we discussed in the hospital, the chest pain that you were experiencing was most likely related to something gastroesophageal (from you stomach or esophagus). We will start a trial of Omeprazole 20 mg by mouth in the morning and move your Famotidine (Pepcid) to the evenings. I will plan for a 1 month trial of this medication for symptom control, but will follow up with you regarding this medication in 1 week. During your stay at the hospital, your oxygen saturation was noted to be low in the emergency department. I suspect that this was a faulty reading. This thought is supported by the fact that you have had no difficulty breathing or pain with breathing and that you oxygen saturation improved without any intervention. Because of your known smoking history, I would recommend completing pulmonary function testing as an outpatient to further confirm the validity of the low oxygen level noted in the emergency department. You were asymptomatic on exam today and your lungs were clear when I listened, so I do not recommend adding any medications for your lungs at this time. A discharge summary will be sent to your primary care physician to ensure continuity of care. Please bring this discharge summary with you to your next office appointment so that your provider can review it at that time. Follow-up appointments: - You primarily follow with Dr. Palencia, but his schedule was full next week, therefore, I have scheduled you a follow up appointment with me on September 30 (Wednesday) at 10:25 AM Medications: - Rx sent for Omeprazole 20 mg Contact your Primary Care Provider if you experience: - Another episode of chest discomfort - Difficulty following your treatment plan or taking medications Call 911 or go to the emergency department if you experience: - Sudden, severe abdominal pain or nausea/vomiting - Severe chest pain, or chest pain that radiates (moves) to your jaw or arm - Sudden, severe shortness of breath or difficulty breathing It was a pleasure to be a part of your care, Dr. Hua Dumont Total Time Total Time Spent Total Time Spent (In Minutes): <30 Supervising Physician Co-Signing Physician Notes I personally examined the patient and verified all sanches points of history and exam, discussed case, and agree with decision making with Dr Dumont No further chest pain. Was pressure, but also "sharp like being hit with a board" and some radiation to left arm and to the back. No individual episode seems to have lasted more than maybe 5 minutes or so. Vitals noted, in general he is awake and alert pleasant no distress. HEENT normocephalic atraumatic mucous membranes moist. Breathing unlabored no accessory muscle use good effort, lungs clear to auscultation bilaterally no rales rhonchi or wheezes. 95% on room air when I checked him. Chest painconcerning for angina initially, but with negative serial high- sensitivity troponins, reassuring EKGs, negative dobutamine stress echo) albeit at 84% of max predicted heart rate, but given the rest of the reassurance, this is also quite reassuring)suspect upper GI for more likely than cardiac. Also considered hypoxia playing a role, but I suspect the hypoxia was spurious given that he had absolutely no respiratory symptoms, and his pulse ox reading of hypoxia seems to have resolved with no intervention. We did discuss that I would not at all be surprised if he has some degree of underlying COPD, but with no respiratory symptoms, clear lungs, and having had a pneumonia just last monthsI would have suspected should hypoxia/lung disease because a spinoff of angina, it would have been far more likely to be whenever he was acutely ill with a pneumonia, not when he is largely recovered. I suspect the pneumonia last month accounts for his chest CT findings. PFTs in a month or so as an outpatient. Safe/stable for home. Otherwise as above
[2022-09-21] MEDS ORDERED: DOBUTamine HCL 12.5 MG/ML 20 ML VIAL IV ONE (12:58)
[2022-09-21] MEDS ORDERED: ATROPINE SULFATE 0.1 MG/ML 10ML SYR IV ONE (12:58)
[2022-09-21] MEDS ORDERED: METOPROLOL TARTRATE 1 MG/ML VIAL IV ONE ×2 (12:58→14:25)
--- NOTE | 2022-09-21 15:50 | XCELERA ---
[id number]
--- NOTE | 2022-09-21 17:13 | Billing Data ---
Date of Service September 21, 2022 Coding Level of Care Code HOSP INP/OBS DISCH 30 MIN/LESS
== END 2022-09-21 18:30 | disposition home or self-care (01) | DRG 313 ==
LOC: ED 22:17 → 2E 09-21 02:43 → SUATTDRO 09-21 02:43 → 2E 09-21 03:17